=== PATIENT | female | born 1955 | race Caucasian/White ===

== ENCOUNTER → 2018-03-31 | Outpatient (CLI) | payer SELFPAY ==
--- NOTE | 2018-04-01 07:01 | US ---
EXAMINATION TYPE: US carotid duplex BILAT DATE OF EXAM: 03/31/2018 COMPARISON: NONE CLINICAL HISTORY: I65.29 OCCLUSION AND STENOSIS. EXAM MEASUREMENTS: RIGHT: Peak Systolic Velocity (PSV) cm/sec ----- Right CCA: 110.8 ----- Right ICA: 131.9 ----- Right ECA: 230.3 ICA/CCA ratio: 1.2 RIGHT: End Diastole cm/sec ----- Right CCA: 39.2 ----- Right ICA: 39.8 ----- Right ECA: 32.3 LEFT: Peak Systolic Velocity (PSV) cm/sec ----- Left CCA: 57.3 ----- Left ICA: 328.1 ----- Left ECA: 74.6 ICA/CCA ratio: 5.7 LEFT: End Diastole cm/sec ----- Left CCA: 20.6 ----- Left ICA: 104.4 ----- Left ECA: 20.2 VERTEBRALS (direction of flow): Right Vertebral: Antegrade Left Vertebral: Antegrade Rhythm: Normal Significant stenosis left side, elevated ICA velocities with extensive plaque noted. IMPRESSION: 1. Extensive atherosclerotic plaque with findings suggestive of a severe stenosis greater than 70% in volving the left internal carotid artery. Criteria for Assigning % of Stenosis / Diameter reduction (Estimation based on the indirect measurements of the internal carotid artery velocities (ICA PSV). 1. Normal (no stenosis)=ICA PSV < 125 cm/s: ratio < 2.0: ICA EDV<40 cm/s. 2. Less than 50% stenosis=ICA PSV < 125 cm/s: ratio < 2.0: ICA EDV<40 cm/s. 3. 50 to 69% stenosis=ICA PSV of 125 to 230 cm/s: ration 2.0 ? 4.0: ICA EDV 40-100 cm/s. 4. Greater than 70% stenosis to near occlusion= ICA PSV > 230 cm/s: ratio > 4.0: ICA EDV > 100 cm/s. 5. Near occlusion= ICA PSV velocities may be low or undetectable: variable ratio and ICA EDV. 6. Total occlusion=unable to detect flow.
== END | disposition home or self-care (01) ==
LOC: RADUSWWP 15:45
PROVIDERS: ATTEND Psychiatry & Neurology Vascular Neurology
DX: I65.23 Occlusion and stenosis of bilateral carotid arteries (principal)
CPT/HCPCS: 93880

== ENCOUNTER → 2018-05-27 | Outpatient (CLI) | payer OTHER, MEDICARE ==
--- NOTE | 2018-05-28 08:29 | CTL ---
EXAMINATION TYPE: CT Low Dose Lung DATE OF EXAM ORDERED: 05/27/2018 HISTORY: Long-term tobacco use. Lung cancer screening CT DLP: [address] CTDI: 2.6 mGy Automated exposure control for dose reduction was used. SCREENING VISIT: Initial study COMPARISON: None TECHNIQUE: Low dose computed tomography scan was performed through the chest at 1 mm thick sections a nd reconstructed images in the coronal plane at [address] DIAGNOSTIC QUALITY: Satisfactory FINDINGS: LUNG NODULES: Present, detailed below: Right mid to lower lung a 4 x 3 mm nodule axial image 140. No greater than 4 mm nodules are evident bilaterally. Incidental calcified 3 mm nodules or granulomas right lower lobe axial image 138 and right upper lobe axial image 81 and lingula axial image 160 LUNGS: COPD: Severity: Moderate Fibrosis: Severity: Mild to moderate focal linear scarring left lung base is prominent in the lingula . Lymph nodes: None Other findings: Elevated left hemidiaphragm noted. Mild to moderate central peribronchial wall thickening is consistent with underlying COPD. BILATERAL PLEURAL SPACE: Effusion: None Calcification: None Thickening: None Pneumothorax: None HEART: Heart Size: Normal Coronary calcification: Severe 3 vessel Pericardial effusion: None OTHER FINDINGS: Upper abdomen: None Bony thorax: Moderate multilevel spurring with underlying S-shaped scoliotic curvature and some mild to moderate multilevel disc space narrowing mid to lower thoracic spine Supraclavicular region: None Other: None IMPRESSION: Small right lung 4 x 3 mm noncalcified nodule. No greater than [address] CHEST RECOMMENDATION: Annual low-dose lung screening CT. CT LUNG RAD: Lung-Rad 2S Benign Appearance or Behavior Recommendation: Severe three-vessel coronary artery calcification, correlate clinically to exclude st ents or for additional coronary artery risk factors to determine if further workup is necessary.
== END | disposition home or self-care (01) ==
LOC: RADCTMAIN 16:24
PROVIDERS: ATTEND Family Medicine
DX: R91.1 Solitary pulmonary nodule (principal); Z87.891 Personal history of nicotine dependence

== ENCOUNTER → 2018-05-28 | Outpatient (CLI) | payer MEDICARE, OTHER ==
[2018-05-28 08:15] VITALS: BP 124/68; PULSE 80; RESP 18; TEMP 96.2; BMI 45.4
--- NOTE | 2018-05-28 09:04 | P.HPOB ---
History of Present Illness H&P Date: 05/28/18 Chief Complaint: The patient is here for her routine gynecologic exam and mammogram. This is a 62-year-old with an LMP of 2000. She is here to establish with this office. She states it has been more than 10 years since her last pelvic exam. She is status post vaginal hysterectomy with BSO in 2000 for benign reasons. The patient is without gynecologic complaints. Review of Systems The patient's weight has been stable over the last year. She denies respiratory , cardiac, or G.I. problems. 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 History of Any Multi-Drug Resistant Organisms: None Reported Past Surgical History: Section (x2), Cholecystectomy, Joint Replacement (Hip replacement bilateral), Orthopedic Surgery, Tonsillectomy Additional Past Surgical History / Comment(s): cervical spinal fusion, hip replacements. Colonoscopy in approximately 2011. Past Anesthesia/Blood Transfusion Reactions: No Reported Reaction Past Psychological History: Anxiety Additional Psychological History / Comment(s): being treated Smoking Status: Former smoker (Quit 01/2018. Previously was very heavy smoker before 2007.) Past Alcohol Use History: Occasional (2 to 3 per week) Past Drug Use History: None Reported Additional History: She's been since 1979 and is disabled. - Past Family History Mother Family Medical History: No Reported History Father Additional Family Medical History / Comment(s): Alzheimer's disease. Medications and Allergies Home Medications Medication Instructions Recorded Confirmed Type Aspirin [Adult Low Dose Aspirin EC] 81 mg PO DAILY 05/28/18 05/28/18 History Atorvastatin [Lipitor] 40 mg PO HS 05/28/18 05/28/18 History Omeprazole 40 mg PO DAILY 05/28/18 05/28/18 History Sertraline [Zoloft] 50 mg PO DAILY 05/28/18 05/28/18 History Ticagrelor [Brilinta] 90 mg PO DAILY 05/28/18 05/28/18 History Allergies Allergy/AdvReac Type Severity Reaction Status Date / Time cephalexin [From Keflex] Allergy Rash/Hives Verified 05/28/18 08:24 Exam Vital Signs Temp Pulse Resp BP Pulse Ox 05/28/18 08:06 96.2 F L 80 18 124/68 98 Intake and Output 05/27/18 05/28/18 05/28/18 22:59 06:59 14:59 Other: Weight 95.254 kg Height 4'9", weight 210 pounds, BMI 45.4. This is a well-developed well-nourished heavyset white female who is alert and oriented times 3 in no acute distress who uses a motorized scooter for mobility. Speech is somewhat slow, but she is able to answer questions appropriately. HEENT: Within normal limits. NECK: Supple without mass or thyromegaly. No carotid bruits are auscultated. CHEST AND LUNGS: Clear to auscultation. HEART: Regular rate and rhythm. BREASTS: Are without mass or discharge. AXILLARY EXAM: Negative for adenopathy. BACK: Negative for CVA tenderness. ABDOMEN: Soft, obese, nontender, without palpable masses. PELVIC EXAM: External genitalia appears normal with mild atrophy. Vagina appears normal with mild atrophy. There is no evidence of prolapse. Bimanual examination is negative for mass or tenderness. RECTAL EXAM: Rectovaginal exam is negative for mass or tenderness and is negative for occult blood. EXTREMITIES: Nontender. IMPRESSION: 1. 62-year-old menopausal female status post vaginal hysterectomy and BSO for benign reasons with normal gynecologic exam. 2. Multiple medical problems including CVA with residual deficits. PLAN: 1. Pap smears have been discontinued. 2. Self breast awareness was discussed with the patient. 3. Screening mammogram will be done today. 4. Osteoporosis prevention was discussed. I have stressed the importance of adequate calcium, vitamin D and regular exercise. Recommended amounts of calcium and vitamin D were also discussed. Bone density testing will be done today. She believes she had one done many years ago, but does not know the results. 5. She will return in one year.
--- NOTE | 2018-05-28 11:10 | BD ---
EXAMINATION TYPE: Axial Bone Density DATE OF EXAM: 05/28/2018 COMPARISON: Baseline exam. No priors. CLINICAL HISTORY: Postmenopausal female. Osteoporosis screening. Height: 59 Weight: 208.9 FRAX RISK QUESTIONS: Alcohol (3 or more units per day): no Family History (Parent hip fracture): no Glucocorticoids (More than 3mos): no (Ex: prednisone, prednisolone, methylprednisolone, dexamethasone, and hydrocortisone). History of Fracture in Adulthood: yes Secondary Osteoporosis: 1. Type 1 Diabetes: no 2. Hyperthyroidism: no 3. Menopause before 45: no 4. Malnutrition: no 5. Chronic liver disease: no Rheumatoid Arthritis: yes Current Tobacco Use: no RISK FACTORS HISTORY OF: History of Wrist Fracture: right wrist When: 20 years ago Surgery to Spine/Hip(right/left)/Wrist (right/left): c-spine/ bilateral hip replacements-15 years ago Family History of Osteoporosis: no Active: no Diet low in dairy products/other sources of calcium: no Postmenopausal woman: 53 Lost more than 2 inches in height since high school: no Frequent falls: no MEDICATIONS: aspirin, acetaminophen, calcium, ticaglor Additional History: EXAM MEASUREMENTS: Bone mineral densitometry was performed using the [employer] System. Bone mineral density as measured about the Lumbar spine is: ----- L1-L4(G/cm2): 1.064 T Score Values are as follows: ----- L2: -2.4 ----- L3: -0.5 ----- L4: 0.0 ----- L1-L4: -1.0 Bone mineral density : baseline Bone mineral density about the L Wrist (g/cm2): 0.579 T Score values are as follows: -----Dist. R+U: -2.6 -----Prox. R+U: -1.0 -----Radius total: -1.6 Bone mineral density : baseline IMPRESSION: Osteoporosis (T Score less than -2.5) with regards to the right wrist. There is increased fracture risk and therapy is usually indicated based on age. Re-Screen 1-2 years. NOTE: T-SCORE=SD OF THE YOUNG ADULT MEAN.
--- NOTE | 2018-05-31 09:26 | MM ---
Reason for exam: screening (asymptomatic). History: Patient is postmenopausal. Family history of breast cancer in maternal grandmother at age 80. MG 3D Screening Mammo W/Cad Bilateral CC and MLO view(s) were taken. The breast tissue is heterogeneously dense. This may lower the sensitivity of mammography. There is a benign-appearing single round subareolar left breast calcification. No discrete abnormality. ASSESSMENT: Benign, BI-RAD 2 RECOMMENDATION: Routine screening mammogram of both breasts in 1 year.
--- NOTE | 2018-06-04 12:47 | P.PN ---
Progress Note - Text Progress Note Date: 06/04/18 OUTPATIENT FOLLOW-UP NOTE TEST(S)/RESULTS: test results from 05/28/2018 include benign mammogram and bone density testing showing osteoporosis (R wrist). METHOD OF NOTIFICATION: the patient was notified by phone. PATIENT COMMENTS: the patient understands the results. She is considering medication for osteoporosis. She believes she had another bone density test done a few years ago in a different city. She does not know the results. DIAGNOSIS: osteoporosis DISCUSSION: we had a long discussion regarding osteoporosis and the increased risk for bone fracture. I have recommended medication for osteoporosis to decrease the risk for bone fracture. We discussed possible risks including increased risk for esophageal ulceration. PLAN: information on osteoporosis and Fosamax will be sent to the patient. This will include the ACOG FAQ and out on osteoporosis. I recommended that she reviewed this with her daughter, Lion, and call if she has questions or if she would like to proceed with the medication. I have also stressed the importance of adequate calcium, vitamin D and exercise.
== END | disposition home or self-care (01) ==
LOC: WWCWWP 07:48
PROVIDERS: ATTEND Obstetrics & Gynecology
DX: Z12.31 Encounter for screening mammogram for malignant neoplasm of breast (principal); M81.0 Age-related osteoporosis without current pathological fracture; Z78.0 Asymptomatic menopausal state
CPT/HCPCS: 77063; 77067; 77080

== ENCOUNTER → 2018-06-18 | Outpatient (CLI) | payer OTHER, MEDICARE ==
[~2018-06-18] MED LIST: REGADENOSON 0.4 MG/5 ML SYRINGE IV ONE
--- NOTE | 2018-06-18 14:00 | NM ---
EXAMINATION TYPE: NM stress lexiscan cardiolite DATE OF EXAM: 06/18/2018 COMPARISON: NONE HISTORY: 62-year-old female with chest pain and shortness of breath. History of hypercholesterolemia, 40 pack-year history of smoking, and prior CVA. TECHNIQUE: After the intravenous administration of 9.9 mCi Tc 99m Sestamibi - Cardiolite resting SPE CT images acquired 45 minutes post injection. The patient received 0.4mg Lexiscan, 24.4 mCi Tc 99m Sestamibi - Stress images obtained [address] injection FINDINGS: The technologist notes that at the time of injection, patient experienced shortness of breath and marco sea. This improves at 10 minutes 36 seconds. Review of stress and rest SPECT images demonstrates small area of decreased perfusion along the anter olateral apical and midanterior angela on stress imaging. Gated analysis shows normal wall motion with an estimated left ventricular ejection fraction of 51 %. TID is calculated at 1.29, elevated. IMPRESSION: 1. Unable to exclude small areas of stress-induced ischemia along the mid anterior wall and anterolat eral apical wall. 2. In addition, TID is elevated and can be seen in the setting of multivessel balanced ischemia. 3. LVEF mildly diminished at 51%.
--- NOTE | 2018-06-20 11:48 | EST ---
EXERCISE STRESS AGE: 62 SEX: F HT: 59" WT: 200 PROTOCOL: Lexiscan Cardiolite Stress Test. HEART RATE REST: 62. BLOOD PRESSURE REST: 139/70 MAXIMUM HEART RATE ACHIEVED: 94 MAXIMUM BLOOD PRESSURE: 162/90 INDICATIONS: Chest pain and shortness of breath CLINICAL INFORMATION: Baseline heart rate 62 beats per minute. Baseline blood pressure 139/70 mmHg. Patient received Lexiscan infusion per protocol. Baseline 12-lead ECG shows normal sinus rhythm with normal cardiac intervals. Patient received Lexiscan infusion per protocol. No arrhythmias noted, no ST-segment abnormalities noted. Heart rate increased into the 90s, blood pressure of 162/90 mmHg. She complained of shortness of breath, nausea at that time. Nuclear portion will be reported separately. MMODL / IJN: [id number] /
== END | disposition home or self-care (01) ==
LOC: RADNMMAIN 08:16
PROVIDERS: ATTEND Internal Medicine
DX: R93.1 Abnormal findings on diagnostic imaging of heart and coronary circulation (principal); R06.02 Shortness of breath; R07.89 Other chest pain
CPT/HCPCS: 93017; 78452; A9500; J2785

== ENCOUNTER 2019-01-06 16:31 | Emergency (ER) | payer OTHER, MEDICARE ==
[2019-01-06 16:58] VITALS: RESP 18
[2019-01-06] MEDS ORDERED: KETOROLAC 30 MG/ML 1 ML VIAL IM STA (17:32)
--- NOTE | 2019-01-06 18:02 | XR ---
PROCEDURE: XR Hip LT and AP Pelvis - 3V DATE AND TIME: 01/06/2019 5:46 PM CLINICAL INDICATION: PHH; Pain left hip, unable to bear weight. TECHNIQUE: Department protocol COMPARISON: None FINDINGS: The bilateral orthopedic hardware are intact. No periprosthesis lucencies. There is no frac ture or malalignment. The soft tissues are unremarkable. IMPRESSION: NO ACUTE PROCESS.
[2019-01-06] MEDS ORDERED: MORPHINE SULFATE 4 MG/ML SYRINGE IM STA (18:58)
--- NOTE | 2019-01-06 19:37 | ED ---
General Adult HPI - General Chief complaint: Extremity Problem,Nontraumatic Stated complaint: Hip pain Time Seen by Provider: 01/06/19 17:19 Source: patient, family, RN notes reviewed Mode of arrival: wheelchair Limitations: altered mental status, physical limitation - History of Present Illness Initial comments: 63-year-old female with a past medical history of hip dysplasia, COPD, CVA, GERD, hyperlipidemia, bilateral hip replacement 20 years ago presents to the emergency department for left hip pain. Patient's states that she started to complain of left hip pain around 11 AM this morning. States it is painful to walk. States pain worsens with movement of the left hip. Denies fevers or chills. Denies any tingling or numbness in the lower extremity.Patient has no other complaints at this time including shortness of breath, chest pain, abdominal pain, nausea or vomiting, headache, or visual changes. - Related Data Home Medications Medication Instructions Recorded Confirmed Aspirin [Adult Low Dose Aspirin EC] 81 mg PO DAILY 05/28/18 01/06/19 Atorvastatin [Lipitor] 40 mg PO HS 05/28/18 01/06/19 Omeprazole 40 mg PO DAILY 05/28/18 01/06/19 Sertraline [Zoloft] 50 mg PO DAILY 05/28/18 01/06/19 Ticagrelor [Brilinta] 90 mg PO BID 05/28/18 01/06/19 Previous Rx's Medication Instructions Recorded HYDROcodone/APAP 5-325MG [Risingsun 1 tab PO Q6HR PRN #10 tab 01/06/19 5-325] Allergies Allergy/AdvReac Type Severity Reaction Status Date / Time cephalexin [From Keflex] Allergy Rash/Hives Verified 01/06/19 17:11 diazepam [From Valium] AdvReac Confusion Verified 01/06/19 17:11 Review of Systems ROS Statement: Those systems with pertinent positive or pertinent negative responses have been documented in the HPI. ROS Other: All systems not noted in ROS Statement are negative. Past Medical History Past Medical History: COPD, CVA/TIA, GERD/Reflux, Hyperlipidemia Additional Past Medical History / Comment(s): Hip dysplasia. History of Any Multi-Drug Resistant Organisms: None Reported Past Surgical History: Section, Cholecystectomy, Heart Catheterization With Stent, Joint Replacement, Orthopedic Surgery, Tonsillectomy Additional Past Surgical History / Comment(s): cervical spinal fusion, hip re placements. carotid artery stent Past Anesthesia/Blood Transfusion Reactions: No Reported Reaction Past Psychological History: Anxiety, Depression Smoking Status: Former smoker Past Alcohol Use History: Occasional Past Drug Use History: None Reported - Past Family History Mother Family Medical History: No Reported History Father Additional Family Medical History / Comment(s): Alzheimer's disease. General Exam Limitations: altered mental status, physical limitation General appearance: alert, in no apparent distress Head exam: Present: atraumatic, normocephalic, normal inspection Eye exam: Present: normal appearance, PERRL, EOMI. Absent: scleral icterus, conjunctival injection, periorbital swelling ENT exam: Present: normal exam, mucous membranes moist Neck exam: Present: normal inspection, full ROM. Absent: tenderness, meningismus, lymphadenopathy Respiratory exam: Present: normal lung sounds bilaterally. Absent: respiratory distress, wheezes, rales, rhonchi, stridor Cardiovascular Exam: Present: regular rate, normal rhythm, normal heart sounds. Absent: systolic murmur, diastolic murmur, rubs, gallop, clicks Extremities exam: Present: normal capillary refill (Capillary refill less than 2 seconds, DP pulse 2+ in the left lower extremity.). Absent: full ROM (Patient has about 30 flexion, extension to neutral position. Patient has about 20 abduction of L hip.), tenderness (No tenderness of the left lower extremity.), pedal edema, joint swelling (No edema or erythema. No calf pain. No increased warmth. Sensation intact in the left lower extremity.) Neurological exam: Present: alert Psychiatric exam: Present: normal affect, normal mood Course Vital Signs 01/06/19 01/06/19 16:54 18:30 Temperature 97.9 F 98.3 F Pulse Rate 70 76 Respiratory 18 18 Rate Blood Pressure 128/78 152/83 O2 Sat by Pulse 96 96 Oximetry Medical Decision Making - Medical Decision Making 63-year-old female with left hip pain. This started 11 AM this morning. No known injury. Patient denies fevers or chills. Apparently was difficult for patient to bear weight on the left hip before arriving. Exam does show limited passive and active range of motion of the left hip. Neurovascular status intact the left lower extremity. X-ray of the left hip shows bilateral orthopedic hardware which is intact. There is no acute process. Patient was given Toradol and pain decreased from a 7 to a 4. Patient is now able to bear weight on the hip and is walking with assistance. Patient always uses a walker at home anyway. Patient was also given morphine in addition to this and is currently requesting discharge. Patient will be discharged home with Risingsun to take for breakthrough pain. Recommended following up with orthopedics. Recommended returning if she has any worsening symptoms. Disposition Clinical Impression: Hip pain, left Disposition: HOME SELF-CARE Condition: Good Instructions (If sedation given, give patient instructions): Hip Pain (ED) Additional Instructions: Please take Motrin for pain. If pain is severe take Risingsun. Do not drive or operate machinery while taking Risingsun. Please follow-up with orthopedics in one to 2 days. Return to the emergency department if you have any worsening symptoms. Prescriptions: HYDROcodone/APAP 5-325MG [Ris[place] 5-325] 1 tab PO Q6HR PRN #10 tab PRN Reason: Pain Is patient prescribed a controlled substance at d/c from ED?: Yes When asked, does pt state using other controlled substances?: No If prescribed controlled substance>3 days was MAPS reviewed?: Prescribed <3 Days If opioid is for acute pain is fill amount 7 days or less?: Yes If Rx opioid, was Start Talking consent form obtained?: Yes Referrals: Kory Ramirez MD [Primary Care Provider] - 1-2 days Sterling Tomas MD [Medical Doctor] - 1-2 days Time of Disposition: 19:30
[2019-01-06 19:52] VITALS: BP 144/78; PULSE 71; TEMP 98.2
== END 2019-01-06 19:49 | disposition home or self-care (01) ==
LOC: EC 16:31
DX: M25.552 Pain in left hip (principal); K21.9 Gastro-esophageal reflux disease without esophagitis; E78.5 Hyperlipidemia, unspecified; F41.9 Anxiety disorder, unspecified; F32.9 Major depressive disorder, single episode, unspecified; Z79.82 Long term (current) use of aspirin; Z79.899 Other long term (current) drug therapy; Z88.1 Allergy status to other antibiotic agents; Z88.8 Allergy status to other drugs, medicaments and biological substances; Z87.891 Personal history of nicotine dependence; Z86.73 Personal history of transient ischemic attack (TIA), and cerebral infarction without residual deficits; Z96.643 Presence of artificial hip joint, bilateral; Z95.5 Presence of coronary angioplasty implant and graft; Z98.1 Arthrodesis status
CPT/HCPCS: 73502; 99283; 96372 ×2; J2270; J1885

== ENCOUNTER → 2019-01-14 | Outpatient (CLI) | payer OTHER, MEDICARE ==
--- NOTE | 2019-01-14 13:07 | CT ---
EXAMINATION TYPE: CT hip LT wo con DATE OF EXAM: 01/14/2019 COMPARISON: X-ray 01/06/2019 HISTORY: Lt hip pain CT DLP: 931 mGycm Automated exposure control for dose reduction was used. FINDINGS: There is extreme artifact from the patient's postsurgical prostheses which results in a nondiagnostic exam. There may be slight eccentric appearance to the femoral head relative to the acetabular compon ent on the previous x-ray IMPRESSION: NONDIAGNOSTIC EXAM DUE TO EXTREME ARTIFACT FROM PATIENT'S ORTHOPEDIC HARDWARE
== END | disposition home or self-care (01) ==
LOC: RADCTMAIN 11:03
PROVIDERS: ATTEND Orthopaedic Surgery Sports Medicine
DX: M51.37 Other intervertebral disc degeneration, lumbosacral region (principal); M51.36 Other intervertebral disc degeneration, lumbar region; M51.87 Other intervertebral disc disorders, lumbosacral region; M51.16 Intervertebral disc disorders with radiculopathy, lumbar region

== ENCOUNTER → 2019-12-30 | Outpatient (CLI) | payer OTHER, MEDICARE ==
[2019-12-30 09:38] LABS: Basophils % (A) 0 %; Eosinophils # (A) 0.2 k/uL (0-0.7); Eosinophils % (A) 4 %; HCT 42.9 % (34.0-46.0); HGB 13.7 gm/dL (11.4-16.0); Lymphocytes # (A) 1.4 k/uL (1.0-4.8); Lymphocytes % (A) 26 %; MCV 93.9 fL (80.0-100.0); Mean Platelet Volume 10.7; Monocytes # (A) 0.3 k/uL (0-1.0); Monocytes % (A) 5 %; Neutrophils # (A) 3.4 k/uL (1.3-7.7); Neutrophils % (A) 63 %; Platelet Count 193 k/uL (150-450); RBC 4.57 m/uL (3.80-5.40); RDW 12.9 % (11.5-15.5); WBC 5.4 k/uL (3.8-10.6)
[2019-12-30 16:47] LABS: African American GFR (CKD) 106.9 (60.0-200.0); Albumin 4.2 g/dL (3.80-4.90); Albumin/Globulin Ratio 2.21 (1.60-3.17); Anion Gap 9.7 mmol/L (4.00-12.00); BUN/Creat Ratio 31.43 Ratio (12.00-20.00); Calcium 9.4 mg/dL (8.7-10.3); Carbon Dioxide 24.3 mmol/L (21.6-31.8); Chol/HDL Ratio 2.65; Globulin 1.9 g/dL (1.6-3.3); LDL Cholesterol,Calculated 69.8 mg/dL (0.0-131.0); Non-African American GFR(CKD) 92.2 (60.0-200.0); Potassium 4.4 mmol/L (3.5-5.5); Total Bilirubin 0.5 mg/dL (0.3-1.2); Total Protein 6.1 g/dL (6.2-8.2); VLDL Calculation 19.2 mg/dL (5.00-40.00)
== END | disposition home or self-care (01) ==
LOC: LABWHC1 07:42
PROVIDERS: ATTEND Family Medicine
DX: I10 Essential (primary) hypertension (principal); E78.2 Mixed hyperlipidemia; Z86.73 Personal history of transient ischemic attack (TIA), and cerebral infarction without residual deficits
CPT/HCPCS: 36415; 80053; 80061; 85025

== ENCOUNTER → 2020-02-04 | Outpatient (CLI) | payer OTHER, MEDICARE ==
--- NOTE | 2020-02-04 17:25 | CONS ---
CONSULTATION DATE OF SERVICE: 02/04/2020 A 64-year-old lady who has been evaluated in the [facility] for possible obstructive sleep apnea-hypopnea syndrome. HISTORY OF PRESENT ILLNESS/SLEEP WAKE EVALUATION: Patient usual sleep schedule from around 9:30 p.m. until around 4 to 6:am. She denies any significant problem with falling asleep, but sometimes she wakes up in the middle of the night and does not sleep after that. She has TV set in bedroom. She usually sleeps on the back position. She snores, grinding her teeth. Positive history of sleep talking and restless legs. In the morning, patient wakes up tired, falling asleep during the day, has problems with memory and concentration. [place] Sleepiness Scale increased to 10. She may take one nap around 1 pm. PAST MEDICAL HISTORY: Positive for stroke about 2 years ago with residual right-sided weakness, history of 20 clonic seizure episodes, the last episode about 2 months ago, hyperlipidemia, acid reflux, depression. MEDICATIONS: Aspirin 81 mg once a day, Atorvastatin 40 mg once a day, Brilinta 90 mg once a day, Famotidine 20 mg, omeprazole 40 mg, sertraline 50 mg, Keppra 750 mg. SOCIAL HISTORY: Negative for smoking or using alcohol. FAMILY HISTORY: Positive for , dementia. REVIEW OF SYSTEMS: Awakenings from sleep, sleepiness during the day. PHYSICAL EXAM: lady without distress, BP 134/85, HR 71, RR 16, height 4, 11, weight 209.6, BMI 42.4, temperature 97.9, oxygen saturation at room air 93%. OROPHARYNX: Extremely low position of soft palate. Mallampati 4. NECK: 15-3/4 inches in circumference. ABDOMEN: Obese. FINISHER WALLBOARD AND PLASTERBOARD: Weakness on the right side of the body. Patient walks with a walker. IMPRESSION: 1. Snoring, extremely low position of soft palate, sleepiness. [place] Sleepiness Scale is 10. Obstructive sleep apnea-hypopnea syndrome. 2. History of restless leg symptoms. 3. History of stroke 2 years ago with residual right-sided weakness. 4. History of seizures episodes, last time about 2 months ago, tonic clonic. 5. Hyperlipidemia. 6. Acid reflux. 7. Status post cholecystectomy. 8. Status post tonsillectomy. 9. Status post multiple right hip surgeries with replacement x5 according to patient, status post neck surgery. PLAN: 1. Polysomnography for evaluation of patient's breathing during sleep. 2. CPAP/BiPAP titration if sleep study confirms obstructive sleep apnea-hypopnea syndrome. 3. Preferable position during sleep on the side. 4. No driving if patient feels any sleepiness. 5. I will see patient for follow up visit to explain results of testing and following plan. Thank you very much for referring this patient for consultation. Sincerely, Ulisses Izaguirre MD, PhD, FAASM Diplomat of [employer] [employer] [employer] Nurse Instructor of [facility] [place] MMODL / IJN: [id number] /
== END | disposition home or self-care (01) ==
LOC: SLEEP 11:22
PROVIDERS: ATTEND Internal Medicine
DX: Z79.82 Long term (current) use of aspirin (principal); G47.33 Obstructive sleep apnea (adult) (pediatric); E78.5 Hyperlipidemia, unspecified; K21.9 Gastro-esophageal reflux disease without esophagitis; Z79.899 Other long term (current) drug therapy; Z86.73 Personal history of transient ischemic attack (TIA), and cerebral infarction without residual deficits; Z90.49 Acquired absence of other specified parts of digestive tract; Z96.641 Presence of right artificial hip joint; Z98.890 Other specified postprocedural states; Z86.69 Personal history of other diseases of the nervous system and sense organs
CPT/HCPCS: 99211

== ENCOUNTER 2020-09-01 18:37 | Emergency (ER) | payer OTHER, MEDICARE ==
[2020-09-01 18:55] VITALS: BP 116/71; PULSE 79; RESP 18; TEMP 98.1
--- NOTE | 2020-09-01 21:14 | ED ---
Wound/Laceration HPI - General Chief Complaint: Wound/Laceration Stated Complaint: Fall, L Leg Injury Time Seen by Provider: 09/01/20 20:51 Source: patient Mode of arrival: wheelchair Limitations: no limitations - History of Present Illness Initial Comments: 64-year-old female presents to emergency room with a chief complaint of a leg injury. Patient reports this occurred about 5 hours prior to arrival. Patient reports she was attempting to get into a truck when she slipped and hit her left thacker directly on the board. Patient reports there was a small area of bleeding which is since resolved. However, states she has developed a large area of bruising that is quite tender to touch. Patient does take blood thinners. She denies any numbness or tingling. Tetanus up-to-date - Related Data Home Medications Medication Instructions Recorded Confirmed Aspirin [Adult Low Dose Aspirin EC] 81 mg PO DAILY 05/28/18 01/06/19 Atorvastatin [Lipitor] 40 mg PO HS 05/28/18 01/06/19 Omeprazole 40 mg PO DAILY 05/28/18 01/06/19 Sertraline [Zoloft] 50 mg PO DAILY 05/28/18 01/06/19 Ticagrelor [Brilinta] 90 mg PO BID 05/28/18 01/06/19 Previous Rx's Medication Instructions Recorded HYDROcodone/APAP 5-325MG [[place] 1 tab PO Q6HR PRN #10 tab 01/06/19 5-325] Allergies Allergy/AdvReac Type Severity Reaction Status Date / Time cephalexin [From Keflex] Allergy Rash/Hives Verified 09/01/20 18:51 diazepam [From Valium] AdvReac Confusion Verified 09/01/20 18:51 Review of Systems ROS Statement: Those systems with pertinent positive or pertinent negative responses have been documented in the HPI. ROS Other: All systems not noted in ROS Statement are negative. Past Medical History Past Medical History: COPD, CVA/TIA, GERD/Reflux, Hyperlipidemia Additional Past Medical History / Comment(s): Hip dysplasia. History of Any Multi-Drug Resistant Organisms: None Reported Past Surgical History: Section, Cholecystectomy, Heart Catheterization With Stent, Joint Replacement, Orthopedic Surgery, Tonsillectomy Additional Past Surgical History / Comment(s): cervical spinal fusion, hip replacements. carotid artery stent Past Anesthesia/Blood Transfusion Reactions: No Reported Reaction Past Psychological History: Anxiety, Depression Smoking Status: Former smoker Past Alcohol Use History: Occasional Past Drug Use History: None Reported - Past Family History Mother Family Medical History: No Reported History Father Additional Family Medical History / Comment(s): Alzheimer's disease. General Exam Limitations: no limitations General appearance: alert, in no apparent distress, obese Head exam: Present: atraumatic, normocephalic, normal inspection Eye exam: Present: normal appearance, PERRL, EOMI Pupils: Present: normal accommodation ENT exam: Present: normal exam, normal oropharynx, mucous membranes moist Neck exam: Present: normal inspection, full ROM. Absent: tenderness Respiratory exam: Present: normal lung sounds bilaterally. Absent: respiratory distress, wheezes, rales, rhonchi, stridor, chest wall tenderness Cardiovascular Exam: Present: regular rate, normal rhythm, normal heart sounds. Absent: systolic murmur, diastolic murmur Extremities exam: Present: full ROM, tenderness (Tender at the injury site.), normal capillary refill, other (Palpable DP and PT bilaterally.). Absent: normal inspection (Small skin tear with an underlying hematoma measuring about 7 cm in diameter located on the anterior aspect of the left lower leg.), pedal edema, joint swelling, calf tenderness Back exam: Present: normal inspection, full ROM. Absent: tenderness, CVA tenderness (R), CVA tenderness (L) Neurological exam: Present: alert, oriented X3 Psychiatric exam: Present: normal affect, normal mood Skin exam: Present: warm, dry, intact, normal color Course Vital Signs 09/01/20 18:52 Temperature 98.1 F Pulse Rate 79 Respiratory 18 Rate Blood Pressure 116/71 O2 Sat by Pulse 94 L Oximetry Medical Decision Making - Medical Decision Making 64-year-old female presented to the emergency department with a chief complaint of a leg injury. On physical examination, small skin tear is noted at the site of injury with underlying hematoma. X-ray shows no acute bony deformities. She is otherwise neurovascularly intact. Tetanus is up-to-date. Patient will be discharged with an outpatient follow-up. Case discussed with Disposition Clinical Impression: Skin tear, Leg injury, Hematoma Disposition: HOME SELF-CARE Condition: Stable Instructions (If sedation given, give patient instructions): Hematoma (ED) Additional Instructions: Please return to the Emergency Department if symptoms worsen or any other concerns. Is patient prescribed a controlled substance at d/c from ED?: No Referrals: Kory Ramirez MD [REFERRING] - 1-2 days Time of Disposition: 21:54
--- NOTE | 2020-09-01 21:37 | XR ---
PROCEDURE: XR tibia fibula LT - 4V DATE AND TIME: 09/01/2020 9:22 PM CLINICAL INDICATION: PHH; Fall, pain TECHNIQUE: AP and crosstable lateral views from the knee to the ankle COMPARISON: None FINDINGS: There is no fracture or malalignment. The soft tissues are unremarkable. IMPRESSION: NO ACUTE PROCESS.
== END 2020-09-01 22:23 | disposition home or self-care (01) ==
LOC: EC 18:37
DX: S81.812A Laceration without foreign body, left lower leg, initial encounter (principal); J44.9 Chronic obstructive pulmonary disease, unspecified; K21.9 Gastro-esophageal reflux disease without esophagitis; F41.9 Anxiety disorder, unspecified; F32.9 Major depressive disorder, single episode, unspecified; E78.5 Hyperlipidemia, unspecified; Z79.82 Long term (current) use of aspirin; Z79.899 Other long term (current) drug therapy; Z86.73 Personal history of transient ischemic attack (TIA), and cerebral infarction without residual deficits; Z87.891 Personal history of nicotine dependence; W01.198A Fall on same level from slipping, tripping and stumbling with subsequent striking against other object, initial encounter
CPT/HCPCS: 99284

== ENCOUNTER 2020-10-08 03:40 | Observation (INO) | payer MEDICARE, OTHER ==
[2020-10-08] MEDS ORDERED: MORPHINE SULFATE 4 MG/ML SYRINGE IV STA (03:52)
[2020-10-08] MEDS ORDERED: SODIUM CHLORIDE 0.9% 1,000 ML IV STA ×2 (03:52)
[2020-10-08] MEDS ORDERED: ONDANSETRON 4 MG/2 ML VIAL IVP STA (03:52)
--- NOTE | 2020-10-08 03:53 | ED ---
Abdominal Pain HPI - General Chief Complaint: Abdominal Pain Stated Complaint: Abd Pain Time Seen by Provider: 10/08/20 03:44 Source: patient, family Mode of arrival: ambulatory Limitations: no limitations - Related Data Home Medications Medication Instructions Recorded Confirmed Aspirin [Adult Low Dose Aspirin EC] 81 mg PO DAILY 05/28/18 01/06/19 Atorvastatin [Lipitor] 40 mg PO HS 05/28/18 01/06/19 Omeprazole 40 mg PO DAILY 05/28/18 01/06/19 Sertraline [Zoloft] 50 mg PO DAILY 05/28/18 01/06/19 Ticagrelor [Brilinta] 90 mg PO BID 05/28/18 01/06/19 Previous Rx's Medication Instructions Recorded HYDROcodone/APAP 5-325MG [[place] 1 tab PO Q6HR PRN #10 tab 01/06/19 5-325] Allergies Allergy/AdvReac Type Severity Reaction Status Date / Time cephalexin [From Keflex] Allergy Rash/Hives Verified 10/08/20 03:49 diazepam [From Valium] AdvReac Confusion Verified 10/08/20 03:49 Review of Systems ROS Statement: Those systems with pertinent positive or pertinent negative responses have been documented in the HPI. ROS Other: All systems not noted in ROS Statement are negative. Past Medical History Past Medical History: COPD, CVA/TIA, GERD/Reflux, Hyperlipidemia Additional Past Medical History / Comment(s): Hip dysplasia. History of Any Multi-Drug Resistant Organisms: None Reported Past Surgical History: Section, Cholecystectomy, Heart Catheterization With Stent, Joint Replacement, Orthopedic Surgery, Tonsillectomy Additional Past Surgical History / Comment(s): cervical spinal fusion, hip replacements. carotid artery stent Past Anesthesia/Blood Transfusion Reactions: No Reported Reaction Past Psychological History: Anxiety, Depression Smoking Status: Former smoker Past Alcohol Use History: Occasional Past Drug Use History: None Reported - Past Family History Mother Family Medical History: No Reported History Father Additional Family Medical History / Comment(s): Alzheimer's disease. General Exam Limitations: no limitations Course Vital Signs 10/08/20 03:46 Temperature 98.9 F Pulse Rate 78 Respiratory 18 Rate Blood Pressure 154/88 O2 Sat by Pulse 95 Oximetry Medical Decision Making - Lab Data Result diagrams: 10/08/20 04:16 10/08/20 04:16 Lab Results 10/08/20 10/08/20 10/08/20 Range/Units 04:16 04:16 04:16 WBC 10.5 (3.8-10.6) k/uL RBC 4.06 (3.80-5.40) m/uL Hgb 12.7 (11.4-16.0) gm/dL Hct 37.0 (34.0-46.0) % MCV 91.1 (80.0-100.0) fL MCH 31.4 (25.0-35.0) pg MCHC 34.5 (31.0-37.0) g/dL RDW 13.6 (11.5-15.5) % Plt Count 182 (150-450) k/uL MPV 10.4 Neutrophils % 83 % Lymphocytes % 10 % Monocytes % 6 % Eosinophils % 1 % Basophils % 0 % Neutrophils # 8.8 H (1.3-7.7) k/uL Lymphocytes # 1.0 (1.0-4.8) k/uL Monocytes # 0.6 (0-1.0) k/uL Eosinophils # 0.1 (0-0.7) k/uL Basophils # 0.0 (0-0.2) k/uL Sodium 138 (137-145) mmol/L Potassium 3.9 (3.5-5.1) mmol/L Chloride 105 (98-107) mmol/L Carbon Dioxide 27 (22-30) mmol/L Anion Gap 6 mmol/L BUN 13 (7-17) mg/dL Creatinine 0.53 (0.52-1.04) mg/dL Est GFR (CKD-EPI)AfAm >90 (>60 ml/min/1.73 sqM) Est GFR (CKD-EPI)NonAf >90 (>60 ml/min/1.73 sqM) Glucose 130 H (74-99) mg/dL Plasma Lactic Acid Rob 0.9 (0.7-2.0) mmol/L Calcium 9.1 (8.4-10.2) mg/dL Total Bilirubin 0.4 (0.2-1.3) mg/dL AST 23 (14-36) U/L ALT 23 (4-34) U/L Alkaline Phosphatase 95 (38-126) U/L Total Protein 6.7 (6.3-8.2) g/dL Albumin 4.2 (3.5-5.0) g/dL Amylase 41 (30-110) U/L Lipase 48 (23-300) U/L Disposition Clinical Impression: Abdominal pain, Acute appendicitis Disposition: ADMITTED IP TO THIS HOSP Condition: Good Is patient prescribed a controlled substance at d/c from ED?: No Referrals: Nonstaff,Physician [Primary Care Provider] - 1-2 days
[2020-10-08 04:33] LABS: Basophils % (A) 0 %; Eosinophils # (A) 0.1 k/uL (0-0.7); Eosinophils % (A) 1 %; HGB 12.7 gm/dL (11.4-16.0); Lymphocytes % (A) 10 %; MCH 31.4 pg (25.0-35.0); MCHC 34.5 g/dL (31.0-37.0); MCV 91.1 fL (80.0-100.0); Mean Platelet Volume 10.4; Monocytes # (A) 0.6 k/uL (0-1.0); Monocytes % (A) 6 %; Neutrophils # (A) 8.8 k/uL (1.3-7.7); Neutrophils % (A) 83 %; Platelet Count 182 k/uL (150-450); RBC 4.06 m/uL (3.80-5.40); RDW 13.6 % (11.5-15.5); WBC 10.5 k/uL (3.8-10.6)
[2020-10-08 04:48] LABS: ALT 23 U/L (4-34); AST 23 U/L (14-36); African American GFR (CKD) >90 (>60 ml/min/1.73 sqM); Albumin 4.2 g/dL (3.5-5.0); Alkaline Phosphatase 95 U/L (38-126); Amylase 41 U/L (30-110); Anion Gap 6 mmol/L; Blood Urea Nitrogen 13 mg/dL (7-17); Calcium 9.1 mg/dL (8.4-10.2); Carbon Dioxide 27 mmol/L (22-30); Chloride 105 mmol/L (98-107); Glucose 130 mg/dL (74-99); Lipase 48 U/L (23-300); Non-African American GFR(CKD) >90 (>60 ml/min/1.73 sqM); Potassium 3.9 mmol/L (3.5-5.1); Sodium 138 mmol/L (137-145); Total Bilirubin 0.4 mg/dL (0.2-1.3); Total Protein 6.7 g/dL (6.3-8.2)
--- NOTE | 2020-10-08 05:29 | CT ---
EXAM: CT Abdomen and Pelvis With Intravenous Contrast CLINICAL HISTORY: ITS.REASON CT Reason: abdominal pain TECHNIQUE: Axial computed tomography images of the abdomen and pelvis with intravenous contrast. CTDI is 50.37 mGy and DLP is 1983.8 mGy-cm. This CT exam was performed using one or more of the following dose reduction techniques: automated exposure control, adjustment of the mA and/or kV according to patient size, and/or use of iterative reconstruction technique. COMPARISON: No relevant prior studies available. FINDINGS: Artifacts: There is significant beam hardening artifact through the pelvis from the lateral hip arthroplasties which limits detailed evaluation in this region. Limitations: There is respiratory artifact which degrades image quality on multiple image slices. Lung bases: Subsegmental changes noted in the posterior lung bases. ABDOMEN: Liver: Unremarkable. No mass. Gallbladder and bile ducts: Cholecystectomy. No ductal dilation. Pancreas: Unremarkable. No mass. No ductal dilation. Spleen: Unremarkable. No splenomegaly. Adrenals: Unremarkable. No mass. Kidneys and ureters: The kidneys demonstrate normal enhancement without hydronephrosis or obstructive nephrolithiasis. Cortical cysts are noted throughout the right kidney measuring up to 3.1 cm in diameter. Delayed phase imaging demonstrates normal excreted contrast in the renal collecting systems and proximal ureters. Stomach and bowel: Unremarkable. No obstruction. No mucosal thickening. PELVIS: Appendix: There is a 7 mm appendicolith noted at the proximal appendiceal ostium. The distal appendix is prominent, measuring 10 mm in diameter with periappendiceal fat stranding. Bladder: The bladder is grossly unremarkable, accounting for artifacts. Reproductive: The uterus is not clearly defined. ABDOMEN and PELVIS: Intraperitoneal space: Unremarkable. No free air. No significant fluid collection. Bones/joints: Bilateral hip arthroplasties. Degenerative changes of the visualized inferior thoracic and lumbar spine with vacuum phenomenon noted at several intervertebral disc levels. There is a 2-3 mm anterolisthesis of T12 on L1. Soft tissues: Unremarkable. Vasculature: Atherosclerotic calcification involving the abdominal aorta and iliac arteries. No abdominal aortic aneurysm. Lymph nodes: Unremarkable. No enlarged lymph nodes. IMPRESSION: There is a 7 mm appendicolith noted at the proximal appendiceal ostium. The distal appendix is prominent, measuring 10 mm in diameter with periappendiceal fat stranding. Findings are most consistent with acute appendicitis. No abscess or bowel perforation. <MYCVCSECTION> Communications: 10/08/20 05:34 Call Doctor Regarding Appendicitis, called Dr. Ramirez on 10/08 05:34 (-04:00)
[2020-10-08] MEDS ORDERED: HYDROmorphone 1 MG/ML 1 ML SYRINGE IVP STA (05:34)
[2020-10-08] MEDS ORDERED: NALOXONE 0.4 MG/ML 1 ML VIAL IV PRN ×2 (05:34→20:39)
[2020-10-08] MEDS ORDERED: ONDANSETRON 4 MG/2 ML VIAL IVP PRN (05:34)
[2020-10-08] MEDS ORDERED: MORPHINE SULFATE 4 MG/ML SYRINGE IV PRN (05:34)
[2020-10-08] MEDS ORDERED: AMPICILLIN-SULBACTAM 3 GM in SODIUM CHLORIDE 0.9% 100 ML IVPB STA (05:35)
[2020-10-08] MEDS ORDERED: PROCHLORPERAZINE INJ 10 MG/2 ML VIAL IVP STA (05:44)
[2020-10-08] MEDS ORDERED: PROCHLORPERAZINE INJ 10 MG/2 ML VIAL IVP PRN (05:44)
[2020-10-08] MEDS: SODIUM CHLORIDE 0.9% 1,000 ML IV SCH ×3 (06:03→23:54)
--- NOTE | 2020-10-08 13:55 | ECHOF ---
Referral Reason:pre op clearance MEASUREMENTS -------- HEIGHT: 177.8 cm WEIGHT: 99.8 kg BP: RVIDd: 3.6 cm (< 3.3) IVSd: 1.5 cm (0.6 - 1.1) LVIDd: 3.7 cm (3.9 - 5.3) LVPWd: 1.3 cm (0.6 - 1.1) IVSs: 2.1 cm LVIDs: 2.8 cm LVPWs: 1.4 cm LAESV Index (A-L): 23.70 ml/m Ao Diam: 3.1 cm (2.0 - 3.7) AV Cusp: 1.9 cm (1.5 - 2.6) LA Diam: 3.8 cm (2.7 - 3.8) MV EXCURSION: 16.659 mm (> 18.000) MV EF SLOPE: 80 mm/s (70 - 150) EPSS: 0.8 cm MV E Sami: 0.91 m/s MV DecT: 166 ms MV A Sami: 1.04 m/s MV E/A Ratio: 0.87 RAP: 5.00 mmHg RVSP: 11.68 mmHg FINDINGS -------- Sinus rhythm. This was a technically adequate study. The left ventricular size is normal. There is moderate concentric left ventricular hypertrophy. O verall left ventricular systolic function is low-normal with, an EF between 50 - 55 %. The diastoli c filling pattern is normal for the age of the patient 9.11. The right ventricle is mildly enlarged. Normal LA size by volume 22+/-6 ml/m2. The right atrial size is normal. Interatrial and interventricular septum intact. The aortic valve is trileaflet and appears structurally normal. There is no evidence of aortic regu rgitation. There is no evidence of aortic stenosis. There is trace to mild mitral regurgitation. Mild tricuspid regurgitation present. There is no evidence of pulmonary hypertension. The right v entricular systolic pressure, as measured by Doppler, is 11.68mmHg. There is no pulmonic regurgitation present. The aortic root size is normal. IVC Not well visulized. There is no pericardial effusion. CONCLUSIONS -------- 1. The left ventricular size is normal. 2. There is moderate concentric left ventricular hypertrophy. 3. Overall left ventricular systolic function is low-normal with, an EF between 50 - 55 %. 4. The diastolic filling pattern is normal for the age of the patient 9.11 5. The right ventricle is mildly enlarged. 6. There is trace to mild mitral regurgitation. 7. Mild tricuspid regurgitation present. PATIENT SUPPORT SPECIALIST: Cherri Cuello RDCS
[2020-10-08] MEDS: AMPICILLIN-SULBACTAM 3 GM in SODIUM CHLORIDE 0.9% 100 ML IVPB SCH ×2 (14:23→21:42)
--- NOTE | 2020-10-08 14:53 | P.GSHP ---
History of Present Illness H&P Date: 10/08/20 This is a 64-year-old female with multiple medical comorbidities including CVA CAD with stents carotid artery stenting history of cholecystectomy and hysterectomy and obstructive sleep apnea. Patient presented to the hospital with a chief complaint of right lower quadrant abdominal pain which began earlier that day. She states she's never had pain like this before she denies any nausea vomiting she denies any change in bowel movements. She is on Proventil for her CVA. Patient was found to have acute appendicitis on computed tomography scan. She states she last took her blood 24 hours ago. Past Medical History Past Medical History: COPD, CVA/TIA, GERD/Reflux, Hyperlipidemia Additional Past Medical History / Comment(s): Hip dysplasia. History of Any Multi-Drug Resistant Organisms: None Reported Past Surgical History: Section, Cholecystectomy, Heart Catheterization With Stent, Joint Replacement, Orthopedic Surgery, Tonsillectomy Additional Past Surgical History / Comment(s): cervical spinal fusion, hip replacements. carotid artery stent Past Anesthesia/Blood Transfusion Reactions: No Reported Reaction Date of Last Stent Placement:: 2017 Past Psychological History: Anxiety, Depression Additional Psychological History / Comment(s): being treated Smoking Status: Former smoker Past Alcohol Use History: Occasional Past Drug Use History: None Reported - Past Family History Mother Family Medical History: No Reported History Father Additional Family Medical History / Comment(s): Alzheimer's disease. Medications and Allergies Home Medications Medication Instructions Recorded Confirmed Type Aspirin [Adult Low Dose Aspirin EC] 81 mg PO DAILY 05/28/18 10/08/20 History Atorvastatin [Lipitor] 40 mg PO DAILY 05/28/18 10/08/20 History Omeprazole 40 mg PO DAILY 05/28/18 10/08/20 History Sertraline [Zoloft] 50 mg PO HS 05/28/18 10/08/20 History Ticagrelor [Brilinta] 90 mg PO BID 05/28/18 10/08/20 History levETIRAcetam [Keppra] 750 mg PO BID 10/08/20 10/08/20 History Allergies Allergy/AdvReac Type Severity Reaction Status Date / Time cephalexin [From Keflex] Allergy Rash/Hives Verified 10/08/20 12:41 diazepam [From Valium] AdvReac Confusion Verified 10/08/20 12:41 Surgical - Exam Osteopathic Statement: *. No significant issues noted on an osteopathic structural exam other than those noted in the History and Physical/Consult. Vital Signs Temp Pulse Resp BP Pulse Ox 98.9 F 78 18 154/88 95 10/08/20 03:46 10/08/20 03:46 10/08/20 03:46 10/08/20 03:46 10/08/20 03:46 - General well developed, well nourished, no distress - Eyes PERRL - Neck no masses, trachea midline - Cardiovascular Rhythm: regular - Abdomen Tender to palpation in the right lower quadrant with rebound tenderness Abdomen: soft - Neurologic normal coordination, normal sensation - Psychiatric oriented to time, oriented to place Results - Labs 10/08/20 04:16 10/08/20 04:16 Abnormal Lab Results - Last 24 Hours (Table) 10/08/20 10/08/20 Range/Units 04:16 04:16 Neutrophils # 8.8 H (1.3-7.7) k/uL Glucose 130 H (74-99) mg/dL Diabetes panel 10/08/20 Range/Units 04:16 Sodium 138 (137-145) mmol/L Potassium 3.9 (3.5-5.1) mmol/L Chloride 105 (98-107) mmol/L Carbon Dioxide 27 (22-30) mmol/L BUN 13 (7-17) mg/dL Creatinine 0.53 (0.52-1.04) mg/dL Glucose 130 H (74-99) mg/dL Calcium 9.1 (8.4-10.2) mg/dL AST 23 (14-36) U/L ALT 23 (4-34) U/L Alkaline Phosphatase 95 (38-126) U/L Total Protein 6.7 (6.3-8.2) g/dL Albumin 4.2 (3.5-5.0) g/dL Calcium panel 10/08/20 Range/Units 04:16 Calcium 9.1 (8.4-10.2) mg/dL Albumin 4.2 (3.5-5.0) g/dL Pituitary panel 10/08/20 Range/Units 04:16 Sodium 138 (137-145) mmol/L Potassium 3.9 (3.5-5.1) mmol/L Chloride 105 (98-107) mmol/L Carbon Dioxide 27 (22-30) mmol/L BUN 13 (7-17) mg/dL Creatinine 0.53 (0.52-1.04) mg/dL Glucose 130 H (74-99) mg/dL Calcium 9.1 (8.4-10.2) mg/dL Adrenal panel 10/08/20 Range/Units 04:16 Sodium 138 (137-145) mmol/L Potassium 3.9 (3.5-5.1) mmol/L Chloride 105 (98-107) mmol/L Carbon Dioxide 27 (22-30) mmol/L BUN 13 (7-17) mg/dL Creatinine 0.53 (0.52-1.04) mg/dL Glucose 130 H (74-99) mg/dL Calcium 9.1 (8.4-10.2) mg/dL Total Bilirubin 0.4 (0.2-1.3) mg/dL AST 23 (14-36) U/L ALT 23 (4-34) U/L Alkaline Phosphatase 95 (38-126) U/L Total Protein 6.7 (6.3-8.2) g/dL Albumin 4.2 (3.5-5.0) g/dL Assessment and Plan Assessment: Acute appendicitis History of CVA on Brilinta History of CAD Plan: I discussed the options with the patient. She is on antiplatelet therapy that she took 24 hours ago. Due to her multiple comorbidities she is high risk for surgery. Cardiology and medicine consult. Patient does have rebound tenderness and focal peritoneal signs in the right lower quadrant. Due to her physical exam findings I don't believe that the patient would tolerate conservative therapy and if she fails conservative therapy due to her multiple comorbidities she is high risk. Because of this I do recommend laparoscopic appendectomy possible open however patient is taking Brilinta and his significant risk for bleeding complications secondary to this. The plan is for transfusion of 2 packs of platelets and to have blood on hold for OR. Patient understood these risks and agreed to surgery
--- NOTE | 2020-10-08 16:03 | P.CONS ---
History of Present Illness - Reason for Consult surgical clearance, preoperative clearance - History of Present Illness patient is pleasant 64-year-old female came in with right no current abdominal pain which started last night at 11 PM severe sharp in nature without any nausea vomiting. Patient doesn't have any leukocytosis doesn't have any fever patient had a CT of the abdomen which showed acute appendicitis and patient was admitted to general surgery. Patient had an echocardiogram which showed did not show any significant abnormality. Patient had history of coronary artery disease and patient had last the stent that was present 2 years ago patient is an dual antiplatelet therapy. Patient had history of psoriasis for accident as well without any residual weakness. Patient is pretty functional doesn't have any shortness of breath doesn't have any active chest pain, EKG was ordered. Review of Systems REVIEW OF SYSTEMS: CONSTITUTIONAL: No fever, no malaise, no fatigue. HEENT: No recent visual problems or hearing problems. Denied any sore throat. CARDIOVASCULAR: No chest pain, orthopnea, PND, no palpitations, no syncope. PULMONARY: No shortness of breath, no cough, no hemoptysis. GASTROINTESTINAL: No diarrhea, no nausea, no vomiting. NEUROLOGICAL: No headaches, no weakness, no numbness. HEMATOLOGICAL: Denies any bleeding or petechiae. GENITOURINARY: Denies any burning micturition, frequency, or urgency. MUSCULOSKELETAL/RHEUMATOLOGICAL: Denies any joint pain, swelling, or any muscle pain. ENDOCRINE: Denies any polyuria or polydipsia. The rest of the 14-point review of systems is negative. Past Medical History Past Medical History: COPD, CVA/TIA, GERD/Reflux, Hyperlipidemia Additional Past Medical History / Comment(s): Hip dysplasia. History of Any Multi-Drug Resistant Organisms: None Reported Past Surgical History: Section, Cholecystectomy, Heart Catheterization With Stent, Joint Replacement, Orthopedic Surgery, Tonsillectomy Additional Past Surgical History / Comment(s): cervical spinal fusion, hip replacements. carotid artery stent Past Anesthesia/Blood Transfusion Reactions: No Reported Reaction Date of Last Stent Placement:: 2017 Past Psychological History: Anxiety, Depression Additional Psychological History / Comment(s): being treated Smoking Status: Former smoker Past Alcohol Use History: Occasional Past Drug Use History: None Reported - Past Family History Mother Family Medical History: No Reported History Father Additional Family Medical History / Comment(s): Alzheimer's disease. Medications and Allergies Home Medications Medication Instructions Recorded Confirmed Type Aspirin [Adult Low Dose Aspirin EC] 81 mg PO DAILY 05/28/18 10/08/20 History Atorvastatin [Lipitor] 40 mg PO DAILY 05/28/18 10/08/20 History Omeprazole 40 mg PO DAILY 05/28/18 10/08/20 History Sertraline [Zoloft] 50 mg PO HS 05/28/18 10/08/20 History Ticagrelor [Brilinta] 90 mg PO BID 05/28/18 10/08/20 History levETIRAcetam [Keppra] 750 mg PO BID 10/08/20 10/08/20 History Allergies Allergy/AdvReac Type Severity Reaction Status Date / Time cephalexin [From Keflex] Allergy Rash/Hives Verified 10/08/20 12:41 diazepam [From Valium] AdvReac Confusion Verified 10/08/20 12:41 Physical Exam Vitals: Vital Signs Temp Pulse Pulse Resp BP BP Pulse Ox 10/08/20 14:00 98.7 F 84 18 141/82 98 10/08/20 07:41 98.3 F 89 17 101/64 95 10/08/20 06:16 79 18 135/82 95 10/08/20 03:46 98.9 F 78 18 154/88 95 Intake and Output 10/08/20 10/08/20 10/08/20 06:59 14:59 22:59 Other: Weight 99.79 kg 99.79 kg PHYSICAL EXAMINATION: GENERAL: The patient is alert and oriented x3, not in any acute distress. Well developed, well nourished. HEENT: Pupils are round and equally reacting to light. EOMI. No scleral icterus. No conjunctival pallor. Normocephalic, atraumatic. No pharyngeal erythema. No thyromegaly. CARDIOVASCULAR: S1 and S2 present. No murmurs, rubs, or gallops. PULMONARY: Chest is clear to auscultation, no wheezing or crackles. ABDOMEN: Soft, nontender, nondistended, normoactive bowel sounds. No palpable organomegaly. MUSCULOSKELETAL: No joint swelling or deformity. EXTREMITIES: No cyanosis, clubbing, or pedal edema. NEUROLOGICAL: Gross neurological examination did not reveal any focal deficits. SKIN: No rashes. Results CBC & Chem 7: 10/08/20 04:16 05/22/21 04:16 Labs: Abnormal Lab Results - Last 24 Hours (Table) 10/08/20 10/08/20 10/08/20 Range/Units 04:16 04:16 14:03 Neutrophils # 8.8 H (1.3-7.7) k/uL Glucose 130 H (74-99) mg/dL Crossmatch See Detail Assessment and Plan Plan: -preoperative clearance: Patient is a low operative risk for appendectomy and this in urgent surgery anyway. Platelet infusion as per general surgery. Patient can be started back on aspirin once she is done with the surgery patient is presently on Unasyn. -Acute appendicitis patient is on Unasyn patient probably undergo appendectomy today -Seizure disorder for which patient is on Keppra which will be switched to IV -Coronary artery disease -History of CVA in the past -Hyperlipidemia -Depression For above-mentioned chronic medical problems patient can be resumed whenever she is allowed to take by mouth medication
[2020-10-08] MEDS: levETIRAcetam IV 750 MG in SODIUM CHLORIDE 0.9% 100 ML IVPB SCH ×2 (16:49→23:37)
--- NOTE | 2020-10-08 16:53 | CONS ---
CONSULTATION CHIEF COMPLAINT: Preop cardiac evaluation. HISTORY OF PRESENT ILLNESS: This is a 64-year-old lady was admitted to hospital with acute appendicitis. She presented with abdominal pain and had been diagnosed with acute appendicitis and is to undergo appendectomy by Dr. Ramos. I have been asked to see her because of her history of coronary artery disease. The patient has known coronary artery disease and had an angioplasty 2 years ago in [place] and has not been seen by a hearing therapy teacher since. There is no history of chest pain or symptoms of heart failure. An EKG done today shows sinus rhythm and is within normal limits. An echocardiogram showed normal LV systolic function. LABS: Labs show a hemoglobin of 12.7 potassium is 4.9, creatinine is 0.5, AST and ALT are within normal limits. The patient is an acceptable risk candidate for surgery under anesthesia as she is at increased risk for perioperative bleeding as she had been on Brilinta up until yesterday. PAST MEDICAL HISTORY: Significant for coronary artery disease status post angioplasty. MEDICATIONS: Include Zoloft, omeprazole, Lipitor 40 daily, aspirin, Keppra, Brilinta 90 b.i.d. ALLERGIC: KEFLEX AND VALIUM. FAMILY HISTORY: Negative for premature coronary artery disease. SOCIAL HISTORY: Negative for current smoking, EtOH abuse or drug abuse. REVIEW OF SYSTEMS: HEENT is unremarkable. CARDIAC: As described above. RESPIRATORY: As described above. GENITOURINARY: Negative. ALLERGY/IMMUNOLOGY: Negative. SKIN: Negative. MUSCULOSKELETAL: Negative. ENDOCRINE negative. DERM negative. CONSTITUTIONAL: Negative. GI significant for abdominal pain secondary to appendicitis. EXAM: She is comfortable at rest. Vital signs are stable. There is no jugular venous distention. Carotid upstroke is normal. There is no bruit. Chest exam reveals good air entry bilaterally. Heart exam reveals first and second heart sounds. Systolic murmur at the left lower sternal border. Abdomen is soft. Exam of extremities did not reveal any edema. Peripheral pulses are felt. EKG is normal as described above. Echocardiogram shows normal LV function. ASSESSMENT: 1. Preop cardiac evaluation. 2. Coronary artery disease status post angioplasty. 3. Dyslipidemia. 4. Acute appendicitis. PLAN: Patient needs an emergent surgery. She is an acceptable risk candidate at risk of bleeding. Brilinta had been stopped. Since the angioplasty is more than a year old, we do not have to restart the Brilinta after surgery. I am going to review her records from [place] and I advised her to follow up with me in the office. MMODL / IJN: [id number] /
[2020-10-08] MEDS ORDERED: fentaNYL (PF) 50 MCG/ML 2 ML AMP IVP ONE (18:39)
[2020-10-08] MEDS ORDERED: LACTATED RINGERS 1,000 ML IV ONE (18:43)
[2020-10-08] MEDS ORDERED: GLYCOPYRROLATE 0.2 MG/ML 2 ML VIAL ONE (18:50)
[2020-10-08] MEDS ORDERED: fentaNYL (PF) 50 MCG/ML 2 ML AMP ONE (18:50)
[2020-10-08] MEDS ORDERED: SUCCINYLCHOLINE CHLORIDE 100 MG/5 ML SYR IV ONE (18:50)
[2020-10-08] MEDS ORDERED: PROPOFOL 10 MG/ML 20 ML VIAL IV ONE (18:50)
[2020-10-08] MEDS ORDERED: ROCURONIUM 10 MG/ML (5 ML VIAL) IV ONE (18:50)
[2020-10-08] MEDS ORDERED: PHENYLEPHRINE-0.9% NACL SYG 1,000 MCG/10 ML SYRINGE ONE (18:50)
[2020-10-08] MEDS ORDERED: BUPIVACAIN-EPI 0.5%-1:200,000 30 ML VIAL SQ ONE ×2 (19:10)
[2020-10-08] MEDS ORDERED: HYDROmorphone 0.5 MG/0.5 ML SYRINGE IVP ONE (20:39)
--- NOTE | 2020-10-08 20:39 | P.OP ---
Date of Procedure: 10/08/20 Preoperative Diagnosis: Acute appendicitis Postoperative Diagnosis: Acute appendicitis an incarcerated incisional hernia Procedure(s) Performed: Laparoscopic appendectomy with extensive lysis of adhesions and repair of incarcerated ventral incisional hernia Anesthesia: PREETI Surgeon: Rashaad Ramos Estimated Blood Loss (ml): 5 Condition: stable Disposition: PACU Description of Procedure: Patient is brought operative suite remained in the supine position underwent general endotracheal anesthesia per Department of anesthesia she was prepped and draped in usual sterile fashion timeout was performed correct patient correct procedure correct site was verified. A 5 mm incision was made directly over pa lmers point in the left upper quadrant. Using a Visiport the abdomen was entered under direct visualization there is noted to be dense adhesions to the anterior abdominal wall in the midline. A second port was placed under direct visualization the left lower quadrant and using a combination of laparoscopic Metzenbaum scissors and a LigaSure device the adhesions were taken down meticulously being sure to ensure hemostasis. There was a 2 cm defect noted in the anterior abdominal wall with incarcerated omentum and mesentery within the defect. This was reduced. A 12 mm port site was placed in the midline and the patient was placed in Trendelenburg right side up. The appendix was identified and the mesial appendix was taken down with a LigaSure device hemostasis was noted the appendix was noted to be gangrenous but without perforation. Using a 60 mm toussaint load Endo ALBA stapler the appendix was stapled across at the base of the cecum with ease. Staple line was inspected and hemostasis was noted. The appendix was placed into an Endo Catch bag and removed through the 12 mm port site which was also through the hernia defect. At this time due to the patient's history of antiplatelet therapy hemostatic powder agent was placed at the staple line to ensure continued hemostasis and then the midline hernia defect was closed with 0 Vicryl with 8 of a Gera-Marilou suture passer in an interrupted fashion. The other 2 port sites were removed under direct visualization and the abdomen was desufflated the skin was closed with 4-0 Monocryl sutures and skin glue patient tolerated the procedure well there are no apparent complications
[2020-10-08] MEDS ORDERED: LACTATED RINGERS 1,000 ML IV SCH (20:45)
[2020-10-08] MEDS ORDERED: ALBUTEROL NEBULIZED 2.5 MG/3 ML INHALATION ONE (20:47)
[2020-10-08] MEDS ORDERED: SERTRALINE 50 MG TAB PO SCH (21:00)
[2020-10-08] MEDS: HYDROcodone/APAP 5-325MG 1 EACH TAB PO PRN (21:43)
[2020-10-08] MEDS: HEPARIN SODIUM,PORCINE/PF 5,000 UNIT/0.5 ML SYRINGE SQ SCH (23:37)
[2020-10-09] MEDS: HYDROcodone/APAP 5-325MG 1 EACH TAB PO PRN ×3 (01:11→13:11)
[2020-10-09] MEDS: AMPICILLIN-SULBACTAM 3 GM in SODIUM CHLORIDE 0.9% 100 ML IVPB SCH ×2 (05:08→12:07)
[2020-10-09 07:41] VITALS: BP 107/63; PULSE 81; RESP 18; TEMP 99
[2020-10-09] MEDS: levETIRAcetam IV 750 MG in SODIUM CHLORIDE 0.9% 100 ML IVPB SCH (08:39)
[2020-10-09] MEDS: HEPARIN SODIUM,PORCINE/PF 5,000 UNIT/0.5 ML SYRINGE SQ SCH (08:39)
[2020-10-09] MEDS: SODIUM CHLORIDE 0.9% 1,000 ML IV SCH (08:40)
[2020-10-09] MEDS ORDERED: ASPIRIN 81 MG PO SCH (09:00)
[2020-10-09 10:01] LABS: African American GFR (CKD) 119.4 (60.0-200.0); Albumin 3.5 g/dL (3.80-4.90); Albumin/Globulin Ratio 1.84 (1.60-3.17); Anion Gap 6.8 mmol/L (4.00-12.00); Calcium 8.2 mg/dL (8.7-10.3); Carbon Dioxide 25.2 mmol/L (21.6-31.8); Globulin 1.9 g/dL (1.6-3.3); Magnesium 1.4 mg/dL (1.5-2.4); Phosphorus 2.4 mg/dL (2.4-5.1); Potassium 3.4 mmol/L (3.5-5.5); Total Bilirubin 0.4 mg/dL (0.3-1.2); Total Protein 5.4 g/dL (6.2-8.2)
[2020-10-09 10:43] LABS: Basophils # (A) 0.01 X 10*3/uL (0.00-0.10); Basophils % (A) 0.2 %; Eosinophils # (A) 0.02 X 10*3/uL (0.04-0.35); Eosinophils % (A) 0.3 %; HCT 32.4 % (37.2-46.3); HGB 10.2 g/dL (12.0-15.0); Lymphocytes # (A) 0.57 X 10*3/uL (0.90-5.00); Lymphocytes % (A) 9.5 %; MCH 29.7 pg (27.0-32.0); MCHC 31.5 g/dL (32.0-37.0); MCV 94.2 fL (80.0-97.0); Mean Platelet Volume 12.7 fL (9.5-12.2); Monocytes # (A) 0.41 X 10*3/uL (0.20-1.00); Monocytes % (A) 6.8 %; Neutrophils # (A) 4.96 X 10*3/uL (1.80-7.70); Neutrophils % (A) 82.9 %; Platelet Count 138 X 10*3/uL (140-440); RBC 3.44 X 10*6/uL (4.10-5.20); RDW 13.4 % (11.5-14.5); WBC 5.99 X 10*3/uL (4.50-10.00)
--- NOTE | 2020-10-09 13:49 | CONS ---
CONSULTATION Marisela is a 64-year-old lady who is admitted to hospital with acute appendicitis and underwent surgery for the same. She is doing well, tolerated the surgery well. She has known coronary artery disease and had prior angioplasty. PHYSICAL EXAMINATION: Heart rate is 81 beats per minute, blood pressure is 107/60, respiratory rate 18. Chest exam reveals good air entry bilaterally. Heart exam reveals first and second heart sounds. No gallop. Examination of extremities did not reveal any edema. ASSESSMENT: 1. Coronary artery disease status post angioplasty. 2. Appendicitis status post appendectomy. PLAN: Patient is doing well. She will continue aspirin and Lipitor that she was on. We will see the patient on an as-needed basis and please arrange follow up with Cardiology on discharge. MMODL / IJN: [id number] /
[2020-10-09] MEDS ORDERED: ATORVASTATIN 40 MG TAB PO SCH (21:00)
== END 2020-10-09 13:34 | disposition home or self-care (01) ==
LOC: EC 03:40 → 4SSUR 05:34
PROVIDERS: ADMIT Student in an Organized Health Care Education/Training Program; ATTEND Student in an Organized Health Care Education/Training Program
DX: K35.80 Unspecified acute appendicitis (principal); K43.0 Incisional hernia with obstruction, without gangrene; K66.0 Peritoneal adhesions (postprocedural) (postinfection); I25.10 Atherosclerotic heart disease of native coronary artery without angina pectoris; G40.901 Epilepsy, unspecified, not intractable, with status epilepticus; E78.5 Hyperlipidemia, unspecified; J44.9 Chronic obstructive pulmonary disease, unspecified; K21.9 Gastro-esophageal reflux disease without esophagitis; Q65.89 Other specified congenital deformities of hip; F32.9 Major depressive disorder, single episode, unspecified; F41.9 Anxiety disorder, unspecified; Z20.822 Contact with and (suspected) exposure to COVID-19; Z79.82 Long term (current) use of aspirin; Z79.02 Long term (current) use of antithrombotics/antiplatelets; Z79.899 Other long term (current) drug therapy; Z88.1 Allergy status to other antibiotic agents; Z88.8 Allergy status to other drugs, medicaments and biological substances; Z96.643 Presence of artificial hip joint, bilateral; Z90.49 Acquired absence of other specified parts of digestive tract; Z86.73 Personal history of transient ischemic attack (TIA), and cerebral infarction without residual deficits; Z87.891 Personal history of nicotine dependence; Z82.0 Family history of epilepsy and other diseases of the nervous system; Z98.891 History of uterine scar from previous surgery; Z95.5 Presence of coronary angioplasty implant and graft; Z98.1 Arthrodesis status; Z95.828 Presence of other vascular implants and grafts; Z98.890 Other specified postprocedural states
CPT/HCPCS: 36430; 96376; 96361; 96374; 96375; 99285; 36415; 93306; 93005; 86900; 86901; 80053 ×2; 82150; 83605; 83690; 83735; 84100; 85025 ×2; 86850; 86920; 87635; 74177; 44970; 49655; G0378 ×2; P9073; J2270; J0780; J2405; J3010; J1170 ×2; J0295 ×2; J1953 ×2; J2370; J0330; J2704; Q9967; J1644 ×2; 88304

== ENCOUNTER → 2020-10-25 | Outpatient (CLI) | payer BC, MEDICARE ==
--- NOTE | 2020-10-25 17:34 | PN ---
PROGRESS NOTE Marisela is a 64-year-old female patient with severe obstructive sleep apnea. The patient is coming in for annual check regarding GILES. The patient was given her BiPAP machine approximately 6 months ago. At that time, the patient was diagnosed having severe obstructive sleep apnea with an AHI of 64. The patient was given a BiPAP pressure of 14/10 cm of water. The patient has been very compliant with BiPAP treatment and based on 30-day compliance, the patient has been averaging around 7.5 hours of BiPAP use per night. Her BiPAP use for more than 4 hours . Based on the machine compliancy, the patient's leak is in order of 26 L/minute. Tidal volume is at 420 with a rate of 17 and ventilation of 7.5. Her AHI is down to 2.11 while on treatment. The patient is using a Vitare wear medium-size full face mask. No major somnolence or sleepiness during the day. Her sleep quality is improved. No snoring. Does not take any long naps during the day. She is much improved and clinically she is benefitting from the BiPAP treatment. REVIEW OF SYSTEMS: Fourteen-point review of system was done. Positive findings are mentioned in history of present illness. PHYSICAL EXAMINATION: BP is 173/71, pulse is 90, respirations 20, temperature 97.6, weight is 237. Saturation 95% on room air. GENERAL APPEARANCE: Obese, calm, comfortable. No acute distress. HEAD is atraumatic, normocephalic. NECK: Supple. No JVD. No goiter or neck masses. Mallampati class 4. LUNGS: Clear to auscultation. HEART: Heart sounds are regular rate and rhythm. Normal S1, S2, no murmurs. ABDOMEN: Soft, nontender. No organomegaly. EXTREMITIES: No edema. No cyanosis or clubbing. NEUROLOGIC: Awake and alert. There is no focal neurological deficits. PSYCHIATRIC: Negative for anxiety or depression. IMPRESSION: 1. Severe obstructive sleep apnea, AHI of 64, currently on a BiPAP pressure of 14/10 with successful treatment. 2. Chronic hypersomnia improved with BiPAP treatment. 3. Severe nocturnal oxygen desaturation improved with BiPAP treatment. 4. History of cerebrovascular accident. 5. Seizure disorder. 6. Depression. 7. Acid reflux. 8. History of sleep talking recovered. 9. Hypertension with elevated blood pressure. PLAN: 1. Report back to the primary care physician regarding blood pressure control. 2. Continue BiPAP at same level of pressure. 3. Refill supplies. 4. Set up the humidity and the temperature of the tubing to automatic mode. 5. Encourage weight loss. 6. See me back in a year's time in followup. Treatment is successful for now. MMODL / IJN: [id number] /

== ENCOUNTER → 2021-02-20 | Outpatient (CLI) | payer MEDICARE ==
[2021-02-20 16:08] LABS: Chol/HDL Ratio 3.68 Ratio; HDL Cholesterol 50.3 mg/dL (40.00-60.00); LDL Cholesterol,Calculated 100.3 mg/dL (0.0-131.0); VLDL Calculation 34.4 mg/dL (5.00-40.00)
== END | disposition home or self-care (01) ==
LOC: LABWHC1 09:33
PROVIDERS: ATTEND Internal Medicine Cardiovascular Disease
DX: E78.2 Mixed hyperlipidemia (principal)
CPT/HCPCS: 36415; 80061; 84450; 84460

== ENCOUNTER → 2021-09-22 | Outpatient (CLI) | payer MEDICARE ==
[2021-09-22 19:12] LABS: HCT 40.7 % (37.2-46.3); HGB 13.3 g/dL (12.0-15.0); MCH 30.7 pg (27.0-32.0); MCHC 32.7 g/dL (32.0-37.0); Mean Platelet Volume 12.9 fL (9.5-12.2); NRBC Per 100 WBC 0 /100 WBCS (0.0-0.0); Platelet Count 192 X 10*3/uL (140-440); RBC 4.33 X 10*6/uL (4.10-5.20); RDW 12.7 % (11.5-14.5); WBC 5.18 X 10*3/uL (4.50-10.00)
[2021-09-22 19:32] LABS: African American GFR (CKD) 106.7 (60.0-200.0); Anion Gap 10.8 mmol/L (10.00-18.00); BUN/Creat Ratio 15.53 Ratio (12.00-20.00); Blood Urea Nitrogen 10.7 mg/dL (9.0-27.0); Calcium 9.6 mg/dL (8.7-10.3); Carbon Dioxide 24.9 mmol/L (20.0-27.5); Potassium 4.6 mmol/L (3.5-5.5)
== END | disposition home or self-care (01) ==
LOC: LABWHC1 10:26
PROVIDERS: ATTEND Internal Medicine Cardiovascular Disease
DX: E78.2 Mixed hyperlipidemia (principal)
CPT/HCPCS: 36415; 80048; 84443; 85027

== ENCOUNTER → 2022-01-23 | Outpatient (CLI) | payer MEDICARE ==
--- NOTE | 2022-01-24 06:46 | PN ---
PROGRESS NOTE SUBJECTIVE: The patient is being seen for a followup. This is a case of severe obstructive sleep apnea with an AHI of 64, and the patient is currently on BiPAP therapy at a pressure of 14/10 cm of water. Since her last evaluation, the patient has gained weight. She used to weigh around 237 pounds back in October 2020 and currently she is up to 263. She is essentially sedentary. She has a history of stroke that occurred back in 2017, and since then, the patient has been quite debilitated and sedentary, and she has been gaining weight. Despite all this, her GILES treatment has been successful. The patient remains on a BiPAP at a pressure of 14/10 cm of water. The patient has been averaging around 7.5 hours of BiPAP use per night and the leak is in order of 12 L/minute. She is using a Vitera medium-sized full-face mask. Tidal volume generated by the BiPAP is around 420 mL with a rate of 16 and a minute ventilation of 6.9 L/minute. The AHI is down to 3.3. She claims that she is using the machine every night, and she feels much better once she has the machine on. During a recent travel to her daughter, she did not take her machine, and her sleep quality was essentially very poor. PHYSICAL EXAMINATION: VITAL SIGNS: Her current vitals, BP is 153/65, pulse 78, respiration 16, temperature 98.1, saturation 95% on room air. Height is 4 feet 10 inches, weight is 263. GENERAL APPEARANCE: Calm and comfortable. HEENT: Head is atraumatic and normocephalic. NECK: Supple. No JVD. No goiter or neck mass. Mallampati class 4. LUNGS: Clear to auscultation. HEART: Sounds regular, rhythm normal. S1, S2. no murmurs. ABDOMEN: Soft, nontender. No organomegaly. Obese. EXTREMITIES: +1 pitting edema. There is no cyanosis or clubbing. IMPRESSION: 1. Severe obstructive sleep apnea. Apnea-hypopnea index of 64. 2. Chronic hypersomnia, improved with BiPAP therapy and treatment is successful and the patient is compliant. 3. Obesity with interval weight gain. Weight is up to 263 and the body mass index is 49. 4. History of cerebrovascular accident back in 2016, and the patient is moving around with the help of a walker. 5. Seizure disorder, currently inactive and stable. 6. Depression. 7. Acid reflux. 8. Sleep talking, recovered. 9. Hypertension. PLAN: 1. Tighter control of cardiovascular risk factors including the blood pressure. 2. Continue BiPAP therapy at the same level of pressure of 14/10 cm of water. 3. Encourage weight loss as the patient has gained significant amount of weight since last evaluation. 4. Refill supplies including a Vitera full-face mask. 5. We will continue to follow. See me back in followup in a year's time. All of the supplies were refilled. MMODL / IJN: [id number] /
== END ==
LOC: SLEEP 12:53
PROVIDERS: ATTEND Internal Medicine Critical Care Medicine
DX: G47.33 Obstructive sleep apnea (adult) (pediatric) (principal); K21.9 Gastro-esophageal reflux disease without esophagitis; F32.A Depression, unspecified; G40.909 Epilepsy, unspecified, not intractable, without status epilepticus; I10 Essential (primary) hypertension; Z87.891 Personal history of nicotine dependence; Z99.89 Dependence on other enabling machines and devices; Z88.1 Allergy status to other antibiotic agents; Z88.8 Allergy status to other drugs, medicaments and biological substances; E66.9 Obesity, unspecified; Z68.42 Body mass index [BMI] 45.0-49.9, adult; Z86.73 Personal history of transient ischemic attack (TIA), and cerebral infarction without residual deficits
CPT/HCPCS: 99212

== ENCOUNTER → 2022-02-27 | Outpatient (CLI) | payer MEDICARE ==
[2022-02-27 11:33] LABS: INR 0.9 (<1.2); Partial Thromboplastin Time 22.9 sec (22.0-30.0); Prothrombin Time 10.2 sec (9.0-12.0)
[2022-02-27 14:18] LABS: HCT 41.4 % (37.2-46.3); HGB 13.3 g/dL (12.0-15.0); MCH 29.9 pg (27.0-32.0); MCHC 32.1 g/dL (32.0-37.0); NRBC Per 100 WBC 0 /100 WBCS (0.0-0.0); Platelet Count 193 X 10*3/uL (140-440); RBC 4.45 X 10*6/uL (4.10-5.20); WBC 5.26 X 10*3/uL (4.50-10.00)
[2022-02-27 14:34] LABS: % Iron Saturation 25.77 (12.00-45.00); ALT 45 U/L (8-44); AST 31 U/L (13-35); African American GFR (CKD) 103.1 (60.0-200.0); Albumin 4.2 g/dL (3.8-4.9); Albumin/Globulin Ratio 1.39 (1.60-3.17); Alkaline Phosphatase 128 U/L (41-126); BUN/Creat Ratio 26.79 Ratio (12.00-20.00); Blood Urea Nitrogen 19.1 mg/dL (9.0-27.0); Calcium 9.7 mg/dL (8.7-10.3); Carbon Dioxide 27.1 mmol/L (20.0-27.5); Chloride 105 mmol/L (96-109); Ferritin 46.1 ng/mL (10.0-291.0); Glucose 106 mg/dL (70-110); Iron 105 ug/dL (50-170); Magnesium 2.1 mg/dL (1.5-2.4); Non-African American GFR(CKD) 88.9 (60.0-200.0); Phosphorus 3.2 mg/dL (2.4-5.1); Potassium 4.2 mmol/L (3.5-5.5); Sodium 141 mmol/L (135-145); Total Iron Binding Capacity 407 ug/dL (228-460); Total Protein 7.1 g/dL (6.2-8.2)
[2022-02-27 14:46] LABS: Chol/HDL Ratio 3.82 Ratio; LDL Cholesterol,Calculated 87.8 mg/dL (0.0-131.0); Prealbumin 22.6 mg/dL (18.0-42.0)
[2022-02-28 11:26] LABS: Zinc, Serum 79 ug/dL (60-130)
[2022-03-01 06:01] LABS: Anabasine Urine <2.0 ng/mL (<2.0)
[2022-03-01 06:15] LABS: Vitamin A 62 ug/dL (38-106)
[2022-03-01 09:35] LABS: Vit B1(Thiamine) 57 ug/L (38-122)
== END | disposition home or self-care (01) ==
LOC: LABWHC1 09:56
PROVIDERS: ATTEND Surgery Plastic and Reconstructive Surgery
DX: E66.01 Morbid (severe) obesity due to excess calories (principal); E89.1 Postprocedural hypoinsulinemia; D50.8 Other iron deficiency anemias; K91.2 Postsurgical malabsorption, not elsewhere classified; E44.0 Moderate protein-calorie malnutrition; E55.9 Vitamin D deficiency, unspecified; K74.1 Hepatic sclerosis; N19 Unspecified kidney failure; T56.894A Toxic effect of other metals, undetermined, initial encounter; K50.90 Crohn's disease, unspecified, without complications
CPT/HCPCS: 84255; 84134; 84425; 80061; 80053; 82607; 82728; 82525; 82746; 83540; 83550; 83735; 84100; 84443; 84590; 84630; 85027; 85610; 85730; 82306; 83970; 83036; 80307; 36415; G0480; G0482; 80323

== ENCOUNTER 2022-10-22 09:04 | Day surgery (SDC) | payer MEDICARE ==
[2022-10-19 12:29] VITALS: BMI 52.2
--- NOTE | 2022-10-22 07:04 | P.GSHP ---
History of Present Illness H&P Date: 10/22/22 CHIEF COMPLAINT: GERD HISTORY OF PRESENT ILLNESS: The patient is a 66-year-old female who presents reports gastroesophageal reflux disease. Upper endoscopy was offered for further evaluation and management. PAST MEDICAL HISTORY: Please see list. PAST SURGICAL HISTORY: Please see list. MEDICATIONS: Please see list. ALLERGIES: Please see list. SOCIAL HISTORY: No illicit drug use FAMILY HISTORY: No reports of Crohn disease or ulcerative colitis. REVIEW OF ORGAN SYSTEMS: CONSTITUTIONAL: No reports of fevers or chills. GI: Denies any blood in stools or constipation. PHYSICAL EXAM: VITAL SIGNS: Stable GENERAL: Well-developed and pleasant in no acute distress. HEENT: No scleral icterus. Extraocular movements grossly intact. Moist buccal mucosa. NECK: Supple without lymphadenopathy. CHEST: Unlabored respirations. Equal bilateral excursions. CARDIOVASCULAR: Regular rate and rhythm. Distal 2+ pulses. ABDOMEN: Soft, nondistended. MUSCULOSKELETAL: No clubbing, cyanosis, or edema. ASSESSMENT: 1. Gastroesophageal reflux disease PLAN: 1. Recommend proceeding with an upper endoscopy Past Medical History Past Medical History: Coronary Artery Disease (CAD), COPD, CVA/TIA, Hyperlipidemia, Hypertension, Seizure Disorder, Sleep Apnea/CPAP/BIPAP Additional Past Medical History / Comment(s): yodit Hip dysplasia. last seizure 2 yrs ago, stroke x 2-aphasia and rt side weakness, SOB History of Any Multi-Drug Resistant Organisms: None Reported Past Surgical History: Appendectomy, Back Surgery, Section, Cholecystectomy, Heart Catheterization With Stent, Hysterectomy, Joint Replacement, Orthopedic Surgery, Tonsillectomy Additional Past Surgical History / Comment(s): cervical spinal fusion, yodit hip replacements. one cardiac stent 2016, left carotid artery stent 2019 Past Anesthesia/Blood Transfusion Reactions: Postoperative Nausea & Vomiting (PONV) Date of Last Stent Placement:: 2018 Smoking Status: Former smoker - Past Family History Mother Family Medical History: No Reported History Father Additional Family Medical History / Comment(s): Alzheimer's disease. Medications and Allergies Home Medications Medication Instructions Recorded Confirmed Type Aspirin [Adult Low Dose Aspirin EC] 162 mg PO DAILY 05/28/18 10/19/22 History Atorvastatin [Lipitor] 80 mg PO DAILY 05/28/18 10/19/22 History Sertraline [Zoloft] 50 mg PO HS 05/28/18 10/19/22 History levETIRAcetam [Keppra] 750 mg PO BID 10/08/20 10/19/22 History Losartan [Cozaar] 25 mg PO DAILY 01/10/22 10/19/22 History Allergies Allergy/AdvReac Type Severity Reaction Status Date / Time cephalexin [From Keflex] Allergy Rash/Hives Verified 10/19/22 12:19 diazepam [From Valium] AdvReac Confusion Verified 10/19/22 12:19
[2022-10-22] MEDS ORDERED: LACTATED RINGERS 1,000 ML IV ONE (09:15)
[2022-10-22] MEDS ORDERED: LIDOCAINE 1% (10MG/ML) FOR IV START INTRADERMA PRN (09:17)
[2022-10-22] MEDS ORDERED: LACTATED RINGERS 1,000 ML IV SCH (09:17)
[2022-10-22 09:40] VITALS: TEMP 96.8
[2022-10-22] MEDS ORDERED: LIDOCAINE 2% INJ 20 MG/ML (2 ML VIAL) ONE (09:53)
[2022-10-22] MEDS ORDERED: PROPOFOL 10 MG/ML 20 ML VIAL IV ONE (09:53)
--- NOTE | 2022-10-22 10:17 | P.PCN ---
Date of Procedure: 10/22/22 Description of Procedure: PREOPERATIVE DIAGNOSIS: Gastroesophageal reflux disease. Morbid obesity. POSTOPERATIVE DIAGNOSIS: Gastroesophageal reflux disease. Morbid obesity. Gastritis. Duodenitis Diaphragmatic hiatal hernia OPERATION: Esophagogastroduodenoscopy with biopsies along antrum, and duodenum SURGEON: Ayse Murphy MD ANESTHESIA: MAC. INDICATIONS: The patient is a 66-year-old female who presents with reflux disease. Benefits and risks of the procedure were described. Informed consent was obtained. DESCRIPTION: The patient was brought into the endoscopy suite and laid in the left lateral decubitus position. An Olympus gastroscope was passed along the posterior oropharynx down to the distal esophagus where the squamocolumnar junction was encountered at 36 cm from the incisors. The stomach was entered and no bile reflux was found. Additional findings are listed below. Biopsies with cold forceps were obtained of the antrum. The first through third portion of the duodenum was examined. Retroflexion of the scope confirmed Hill grade 3 lower esophageal valve. The squamocolumnar junction demonstrated LA grade B erosive esophagitis. The stomach was desufflated. The patient tolerated the procedure well. FINDINGS: Squamocolumnar junction 36 cm from the incisors. Diaphragmatic hiatus at 38 cm. Hiatal hernia, 2 cm Hill grade 3 lower esophageal valve. LA grade B erosive esophagitis. Biopsies obtained of duodenum with duodenitis Chronic gastritis, biopsies obtained RECOMMENDATIONS: Upper endoscopy as needed. Plan - Discharge Summary Discharge Rx Participant: Yes New Discharge Prescriptions: Continue Atorvastatin [Lipitor] 80 mg PO DAILY Sertraline [Zoloft] 50 mg PO HS Aspirin [Adult Low Dose Aspirin EC] 162 mg PO DAILY levETIRAcetam [Keppra] 750 mg PO BID Losartan [Cozaar] 25 mg PO DAILY Discharge Medication List Aspirin [Adult Low Dose Aspirin EC] 162 mg PO DAILY 05/28/18 [History] Atorvastatin [Lipitor] 80 mg PO DAILY 05/28/18 [History] Sertraline [Zoloft] 50 mg PO HS 05/28/18 [History] levETIRAcetam [Keppra] 750 mg PO BID 10/08/20 [History] Losartan [Cozaar] 25 mg PO DAILY 01/10/22 [History] [facility] [facility] [place] [place] Patient Instructions/Handouts: Duodenitis (DC), Hiatal Hernia (DC) Discharge Disposition: HOME SELF-CARE
[2022-10-22 10:30] VITALS: BP 102/61; PULSE 61; RESP 18
== END 2022-10-22 11:18 | disposition home or self-care (01) ==
LOC: ORWHC2ENDO 09:04
PROVIDERS: ATTEND Surgery Plastic and Reconstructive Surgery
DX: K29.50 Unspecified chronic gastritis without bleeding (principal); K21.00 Gastro-esophageal reflux disease with esophagitis, without bleeding; E66.01 Morbid (severe) obesity due to excess calories; K44.9 Diaphragmatic hernia without obstruction or gangrene; J44.9 Chronic obstructive pulmonary disease, unspecified; I25.10 Atherosclerotic heart disease of native coronary artery without angina pectoris; K29.80 Duodenitis without bleeding; I10 Essential (primary) hypertension; E78.5 Hyperlipidemia, unspecified; G47.33 Obstructive sleep apnea (adult) (pediatric); Z90.89 Acquired absence of other organs; Z86.73 Personal history of transient ischemic attack (TIA), and cerebral infarction without residual deficits; Z79.82 Long term (current) use of aspirin; Z90.49 Acquired absence of other specified parts of digestive tract; Z95.5 Presence of coronary angioplasty implant and graft; Z98.1 Arthrodesis status; Z90.710 Acquired absence of both cervix and uterus; Z87.891 Personal history of nicotine dependence; Z88.1 Allergy status to other antibiotic agents; Z79.899 Other long term (current) drug therapy; Z68.45 Body mass index [BMI] 70 or greater, adult
CPT/HCPCS: 43239; J2704; J2001; 88305

== ENCOUNTER → 2022-10-31 | Outpatient (CLI) | payer MEDICARE ==
[2022-10-31 16:08] VITALS: BP 99/66; PULSE 85; TEMP 98.5; BMI 54.3
--- NOTE | 2022-10-31 16:30 | P.BASOAP ---
Subjective Progress Note Date: 10/31/22 Sleeve described and consent for sleeve described. Needs walker. Objective - Vital Signs Vital signs: Vital Signs Temp 98.5 F 10/31/22 16:04 Pulse 85 10/31/22 16:04 Resp BP 99/66 10/31/22 16:04 Pulse Ox FiO2 Intake & Output 10/30/22 10/31/22 10/31/22 18:59 06:59 18:59 Weight 117.934 kg Assessment/Plan Plan: Date: 10/31/22 Initial Weight: Initial BMI: Current Weight: 117.934 kg Current BMI: 54.3 Type of Surgery: Total Volume in Band: Previous Volume: Volume Removed: Volume Added: Band Size:
== END ==
LOC: BARWHC3 15:02
PROVIDERS: ATTEND Surgery Plastic and Reconstructive Surgery
DX: E66.01 Morbid (severe) obesity due to excess calories (principal); Z68.43 Body mass index [BMI] 50.0-59.9, adult; Z88.8 Allergy status to other drugs, medicaments and biological substances; Z88.1 Allergy status to other antibiotic agents; Z87.891 Personal history of nicotine dependence
CPT/HCPCS: 99211

== ENCOUNTER → 2022-11-12 | Outpatient (CLI) | payer MEDICARE ==
[2022-11-12 11:05] VITALS: BMI 54.3
== END ==
LOC: BARWHC3 08:42
PROVIDERS: ATTEND Surgery Plastic and Reconstructive Surgery
DX: E66.01 Morbid (severe) obesity due to excess calories (principal); Z71.3 Dietary counseling and surveillance; Z68.43 Body mass index [BMI] 50.0-59.9, adult; Z88.1 Allergy status to other antibiotic agents; Z88.8 Allergy status to other drugs, medicaments and biological substances; Z87.891 Personal history of nicotine dependence
CPT/HCPCS: 97804

== ENCOUNTER → 2022-12-26 | Outpatient (CLI) | payer MEDICARE ==
[2022-12-26 17:18] LABS: Basophils # (A) 0.02 X 10*3/uL (0.00-0.10); Basophils % (A) 0.5 %; Eosinophils % (A) 2.5 %; HCT 44.3 % (37.2-46.3); HGB 14.8 d/dL (12.0-15.0); Lymphocytes # (A) 0.71 X 10*3/uL (0.90-5.00); Lymphocytes % (A) 17.4 %; MCH 31.3 pg (27.0-32.0); MCHC 33.4 d/dL (32.0-37.0); MCV 93.7 FL (80.0-97.0); Monocytes # (A) 0.51 X 10*3/uL (0.20-1.00); Monocytes % (A) 12.5 %; NRBC Per 100 WBC 0 X 10*3/uL (0.00-0.01); Neutrophils # (A) 2.73 X 10*3/uL (1.80-7.70); Neutrophils % (A) 66.9 %; Platelet Count 134 X 10*3/uL (140-440); RBC 4.73 X 10*6/uL (4.10-5.20); RDW 13.5 % (11.5-14.5); WBC 4.08 X 10*3/uL (4.50-10.00)
[2022-12-26 17:30] LABS: ALT 1530 U/L (8-44); AST 1559 U/L (13-35); Albumin/Globulin Ratio 1.38 Ratio (1.60-3.17); Alkaline Phosphatase 672 U/L (41-126); Blood Urea Nitrogen 15.3 mg/dL (9.0-27.0); Calcium 9.7 mg/dL (8.7-10.3); Carbon Dioxide 26.3 mmol/L (21.6-31.8); Chloride 100 mmol/L (96-109); Globulin 2.9 d/dL (1.6-3.3); Glucose 103 mg/dL (70-110); Potassium 4.8 mmol/L (3.5-5.5); Sodium 136 mmol/L (135-145); Total Bilirubin 0.6 mg/dL (0.3-1.2); Total Protein 6.9 d/dL (6.2-8.2)
== END | disposition home or self-care (01) ==
LOC: LABWHC1 09:48
PROVIDERS: ATTEND Psychiatry & Neurology Neurology
DX: Z01.812 Encounter for preprocedural laboratory examination (principal); Z86.73 Personal history of transient ischemic attack (TIA), and cerebral infarction without residual deficits
CPT/HCPCS: 36415; 80053; 85025

== ENCOUNTER → 2022-12-26 | Outpatient (CLI) | payer MEDICARE ==
[2022-12-26 09:29] VITALS: BP 128/72; PULSE 79; TEMP 98.3; BMI 51.4
--- NOTE | 2022-12-26 09:42 | P.BASOAP ---
Subjective Progress Note Date: 12/26/22 Patient is a wheelchair. She has lost 20 pounds in 2 months. He is on multiple heart medications and vitamins. Family at bedside. Patient deemed high risk. Emphasis on continued weight loss. Inpatient hospitalization Described. All questions addressed. Consent for sleeve gastrectomy Objective - Vital Signs Vital signs: Vital Signs Temp 98.3 F 12/26/22 09:26 Pulse 79 12/26/22 09:26 Resp BP 128/72 12/26/22 09:26 Pulse Ox FiO2 Intake & Output 12/25/22 12/26/22 12/26/22 18:59 06:59 18:59 Weight 111.584 kg Assessment/Plan Plan: Date: 12/26/22 Initial Weight: Initial BMI: Current Weight: 111.584 kg Current BMI: 51.4 Type of Surgery: Total Volume in Band: Previous Volume: Volume Removed: Volume Added: Band Size:
== END ==
LOC: BARWHC3 09:13
PROVIDERS: ATTEND Surgery Plastic and Reconstructive Surgery
DX: Z53.9 Procedure and treatment not carried out, unspecified reason (principal)
CPT/HCPCS: 99211

== ENCOUNTER 2022-12-28 09:30 | Emergency (ER) | payer MEDICARE ==
[2022-12-28 09:37] VITALS: TEMP 98.6
[2022-12-28] MEDS ORDERED: SODIUM CHLORIDE 0.9% 1,000 ML IV ONE (10:13)
--- NOTE | 2022-12-28 10:17 | ED ---
General Adult HPI - General Chief complaint: Recheck/Abnormal Lab/Rx Stated complaint: abn labs, sent by PCP Time Seen by Provider: 12/28/22 10:04 Source: patient, RN notes reviewed Mode of arrival: ambulatory Limitations: no limitations - History of Present Illness Initial comments: 67-year-old female with past medical history significant for CVA, hypertension, hyperlipidemia presents the emergency department with a chief complaint of abnormal lab work. Patient reports that she had lab work done by Dr. Katz a few days ago. She reports that she was called today with her results and was told that she had elevated liver enzymes. She was instructed to come to the emergency department for further evaluation. Patient offers no spec [facility] complaints at this time. She denies any fever, chills, fatigue, nausea, vomiting, abdominal pain, melena, hematochezia. Patient reports that she is chronically constipated. Patient is scheduled for a gastric sleeve surgery on 01/07/2023. - Related Data Home Medications Medication Instructions Recorded Confirmed Aspirin [Adult Low Dose Aspirin EC] 162 mg PO DAILY 05/28/18 12/28/22 Sertraline [Zoloft] 50 mg PO DAILY 05/28/18 12/28/22 levETIRAcetam [Keppra] 750 mg PO BID 10/08/20 12/28/22 Losartan [Cozaar] 25 mg PO DAILY 01/10/22 12/28/22 Ascorbic Acid [Vitamin C] 500 mg PO DAILY 12/28/22 12/28/22 Atorvastatin [Lipitor] 80 mg PO DAILY 12/28/22 12/28/22 Elie/D3/Mag11/Zinc/Aprn/Geovanny/Bor 1 tab PO DAILY 12/28/22 12/28/22 [Caltrate 600+D Plus Tablet] Cholecalciferol [Vitamin D3 (25 50 mcg PO DAILY 12/28/22 12/28/22 Mcg = 1000 Iu)] Lactulose 30 gm PO HS 12/28/22 12/28/22 Premier Protein Shake 1 bottle PO TID-W/MEALS 12/28/22 12/28/22 Allergies Allergy/AdvReac Type Severity Reaction Status Date / Time cephalexin [From Keflex] Allergy Rash/Hives Verified 12/28/22 13:38 diazepam [From Valium] AdvReac Confusion Verified 12/28/22 13:38 Review of Systems ROS Statement: Those systems with pertinent positive or pertinent negative responses have been documented in the HPI. ROS Other: All systems not noted in ROS Statement are negative. Past Medical History Past Medical History: Coronary Artery Disease (CAD), COPD, CVA/TIA, Hyperlipidemia, Hypertension, Seizure Disorder, Sleep Apnea/CPAP/BIPAP Additional Past Medical History / Comment(s): yodit Hip dysplasia. last seizure 2 yrs ago, stroke x 2-aphasia and rt side weakness, SOB History of Any Multi-Drug Resistant Organisms: None Reported Past Surgical History: Appendectomy, Back Surgery, Section, Cholecystectomy, Heart Catheterization With Stent, Hysterectomy, Joint Replacement, Orthopedic Surgery, Tonsillectomy Additional Past Surgical History / Comment(s): cervical spinal fusion, yodit hip replacements. one cardiac stent 2016, left carotid artery stent 2019 Past Anesthesia/Blood Transfusion Reactions: Postoperative Nausea & Vomiting (PONV) Date of Last Stent Placement:: 2017 Past Psychological History: No Psychological Hx Reported Smoking Status: Former smoker Past Alcohol Use History: Occasional Past Drug Use History: None Reported - Past Family History Mother Family Medical History: No Reported History Father Additional Family Medical History / Comment(s): Alzheimer's disease. General Exam - General Exam Comments Initial Comments: General: Alert, in no acute distress, obese Head: atraumatic normocephalic. Eyes PERRL, EOMI intact, mucous membranes moist Respiratory: Lungs clear to auscultation bilaterally Cardiovascular: Rate regular rate and rhythm Abdominal: Soft without guarding or rebound Extremities: Normal inspection with full range of motion and normal capillary refill Neuroogic: alert and oriented 3, CN II-XII intact, able to ambulate with steady gait Skin: warm dry and intact with normal color Limitations: no limitations Course Vital Signs 12/28/22 09:35 Temperature 98.6 F Pulse Rate 72 Respiratory 20 Rate Blood Pressure 111/65 O2 Sat by Pulse 98 Oximetry - Reevaluation(s) Reevaluation #1: 12/28/22 12:[address] Katz who recommends patient be transferred to [facility] in order to be evaluated by GI. Reevaluation #2: 12/28/22 12:32 Case discussed with HAILEY Mack on-call [facility] who recommends CT with contrast. He asked to be called once results are back. Reevaluation #3: 12/28/22 14:47 [place] discussed with HAILEY Mack who agrees and accepts the patient for transfer to [facility]. Reevaluation #4: 12/28/22 14:53 [place] [facility] attending [facility] who agrees and accepts the patient for ER to ER transfer. Medical Decision Making - Medical Decision Making Was pt. sent in by a medical professional or institution (, MARIANNE, DIRECTOR HOSPICE OPERATIONS, urgent care, hospital, or long term...) When possible be specific @ -[No] Did you speak to anyone other than the patient for history (EMS, parent, family, police, friend...)? What history was obtained from this source @ - Did you review nursing and triage notes (agree or disagree)? Why? @ -[I reviewed and agree with nursing and triage notes] Were old charts reviewed (outside hosp., previous admission, EMS record, old EKG, old radiological studies, urgent care reports/EKG's, long term records)? Report findings @ -[No old charts were reviewed] Differential Diagnosis (chest pain, altered mental status, abdominal pain women, abdominal pain men, vaginal bleeding, weakness, fever, dyspnea, syncope, headache, dizziness, GI bleed, back pain, seizure, CVA, palpatations, mental health, musculoskeletal)? @ -[not applicable] EKG interpreted by me (3pts min.). @ -[As above] X-rays interpreted by me (1pt min.). @ -[None done] CT interpreted by me (1pt min.). @ CT abdomen does not reveal any ductal dilation. Cholecystectomy clips are present. There is umbilical hernia. Otherwise negative CT U/S interpreted by me (1pt. min.). @ -[None done] What testing was considered but not performed or refused? (CT, X-rays, U/S, labs)? Why? @ -[None] What meds were considered but not given or refused? Why? @ -[None] Did you discuss the management of the patient with other professionals (professionals i.e. MARIANNE Carbajal, DIRECTOR HOSPICE OPERATIONS, lab, RT, psych nurse, social work assistant, social work assistant, teacher, sheriff's officer, outpatient case manager)? Give summary @ -[No] Was smoking cessation discussed for >3mins.? @ -[No] Was critical care preformed (if so, how long)? @ -[No] Were there social determinants of health that impacted care today? How? (Homelessness, low income, unemployed, alcoholism, drug addiction, transportation, low edu. Level, literacy, decrease access to med. care, [facility], rehab)? @ -[No] Was there de-escalation of care discussed even if they declined (Discuss DNR or withdrawal of care, Hospice)? DNR status @ -[No] What co-morbidities impacted this encounter? (DM, HTN, Smoking, COPD, CAD, Cancer, CVA, ARF, Chemo, Hep., AIDS, mental health diagnosis, sleep apnea, morbid obesity)? @ -[None] Was patient admitted / discharged? Hospital course, mention meds given and route, prescriptions, significant lab abnormalities, going to OR and other perti nent info. @ Transfer to [facility]. This is a pleasant 67-year-old female with a past medical history significant for hypertension and CVA who presents to the emergency department with abnormal labs. Patient had a thorough history and physical exam performed on the ED. Physical exam is essentially unremarkable. Heart rate regular rate and rhythm, lungs clear to auscultation bilaterally, abdomen soft nontender. Patient offers no specific complaints. Vital signs are stable during the course of the emergency department. Patient had lab work and imaging which revealed: AST 1800, ALT 1500, alk phos 600. I discussed the results in detail with the patient verbalized understanding all questions were addressed. She is agreeable with the plan for transfer to [facility] in order to obtain a blade sharpener evaluation. Case discussed with Dr. Cohen, ED attending who agrees and accepts the patient for ER to ER transfer with consult to Dr. Rehman, GI. Case discussed with Dr. Martel, P who agrees with plan of care Undiagnosed new problem with uncertain prognosis? @ -[No] Drug Therapy requiring intensive monitoring for toxicity (Heparin, Nitro, Insulin, Cardizem)? @ -[No] Were any procedures done? @ -[No] Diagnosis/symptom? @ -Asymptomatic Transaminitis Acute, or Chronic, or Acute on Chronic? @Acute Uncomplicated (without systemic symptoms) or Complicated (systemic symptoms)? @ -Complicated Side effects of treatment? @ -[No] Exacerbation, Progression, or Severe Exacerbation? @ -[No] Poses a threat to life or bodily function? How? (Chest pain, [place], [place], pneumonia, PE, COPD, DKA, ARF, appy, cholecystitis, CVA, Diverticulitis, Homicidal, Suicidal, threat to staff... and all critical care pts) @ -Moderate likelihood - Lab Data Result diagrams: 12/28/22 10:16 12/28/22 10:16 Lab Results 12/28/22 12/28/22 12/28/22 Range/Units 10:16 10:16 10:16 WBC 3.9 (3.8-10.6) k/uL RBC 4.44 (3.80-5.40) m/uL Hgb 14.0 (11.4-16.0) gm/dL Hct 41.8 (34.0-46.0) % MCV 94.1 (80.0-100.0) fL MCH 31.5 (25.0-35.0) pg MCHC 33.5 (31.0-37.0) g/dL RDW 13.3 (11.5-15.5) % Plt Count 116 L (150-450) k/uL MPV 11.0 Neutrophils % 70 % Lymphocytes % 16 % Monocytes % 9 % Eosinophils % 3 % Basophils % 0 % Neutrophils # 2.7 (1.3-7.7) k/uL Lymphocytes # 0.6 L (1.0-4.8) k/uL Monocytes # 0.3 (0-1.0) k/uL Eosinophils # 0.1 (0-0.7) k/uL Basophils # 0.0 (0-0.2) k/uL PT 10.8 (9.0-12.0) sec INR 1.0 (<1.2) APTT 28.3 (22.0-30.0) sec Sodium 136 L (137-145) mmol/L Potassium 4.2 (3.5-5.1) mmol/L Chloride 102 (98-107) mmol/L Carbon Dioxide 24 (22-30) mmol/L Anion Gap 10 mmol/L BUN 11 (7-17) mg/dL Creatinine 0.48 L (0.52-1.04) mg/dL Est GFR (CKD-EPI)AfAm >90 (>60 ml/min/1.73 sqM) Est GFR (CKD-EPI)NonAf >90 (>60 ml/min/1.73 sqM) Glucose 100 H (74-99) mg/dL Calcium 8.9 (8.4-10.2) mg/dL Total Bilirubin 1.1 (0.2-1.3) mg/dL Conjugated Bilirubin 0.0 (0.0-0.3) mg/dL Unconjugated Bilirubin 0.6 (0.0-1.1) mg/dL Delta Bilirubin 0.5 H (0.0-0.2) mg/dL AST 1808 H (14-36) U/L ALT 1536 H (4-34) U/L Alkaline Phosphatase 622 H (38-126) U/L Total Protein 6.8 (6.3-8.2) g/dL Albumin 3.6 (3.5-5.0) g/dL Disposition Clinical Impression: Transaminitis Disposition: OTHER INSTITUTION NOT DEFINED Referrals: Ayse Murphy MD [STAFF PHYSICIAN] - 1-2 days Time of Disposition: 14:54 - Out of Hospital Transfer - Req. Specs Out of Hospital Transfer - Requested Specifics: Other Emergency Center ([facility])
[2022-12-28 10:22] LABS: Basophils % (A) 0 %; Eosinophils # (A) 0.1 k/uL (0-0.7); Eosinophils % (A) 3 %; HCT 41.8 % (34.0-46.0); Lymphocytes # (A) 0.6 k/uL (1.0-4.8); Lymphocytes % (A) 16 %; MCH 31.5 pg (25.0-35.0); MCHC 33.5 g/dL (31.0-37.0); MCV 94.1 fL (80.0-100.0); Monocytes # (A) 0.3 k/uL (0-1.0); Monocytes % (A) 9 %; Neutrophils # (A) 2.7 k/uL (1.3-7.7); Neutrophils % (A) 70 %; Platelet Count 116 k/uL (150-450); RBC 4.44 m/uL (3.80-5.40); RDW 13.3 % (11.5-15.5); WBC 3.9 k/uL (3.8-10.6)
[2022-12-28 10:30] LABS: Partial Thromboplastin Time 28.3 sec (22.0-30.0); Prothrombin Time 10.8 sec (9.0-12.0)
[2022-12-28 10:38] LABS: African American GFR (CKD) >90 (>60 ml/min/1.73 sqM); Albumin 3.6 g/dL (3.5-5.0); Alkaline Phosphatase 622 U/L (38-126); Anion Gap 10 mmol/L; Bilirubin, Delta 0.5 mg/dL (0.0-0.2); Bilirubin,Unconjugated 0.6 mg/dL (0.0-1.1); Blood Urea Nitrogen 11 mg/dL (7-17); Calcium 8.9 mg/dL (8.4-10.2); Carbon Dioxide 24 mmol/L (22-30); Chloride 102 mmol/L (98-107); Glucose 100 mg/dL (74-99); Non-African American GFR(CKD) >90 (>60 ml/min/1.73 sqM); Potassium 4.2 mmol/L (3.5-5.1); Sodium 136 mmol/L (137-145); Total Bilirubin 1.1 mg/dL (0.2-1.3); Total Protein 6.8 g/dL (6.3-8.2)
[2022-12-28 10:53] LABS: ALT 1536 U/L (4-34)
[2022-12-28 11:06] LABS: AST 1808 U/L (14-36)
--- NOTE | 2022-12-28 13:43 | CT ---
EXAMINATION TYPE: CT abdomen pelvis w con DATE OF EXAM: 12/28/2022 COMPARISON: 10/08/2020 HISTORY: 67-year-old female abnormal enzyme LABS SENT BY PCP TECHNIQUE: Contiguous axial scanning of the abdomen and pelvis following administration of 100 ml Iso jessi 300 IV contrast. Delayed images through the kidneys and coronal/sagittal reconstructions perform ed. CT DLP: 2392.4 mGycm Automated exposure control for dose reduction was used. FINDINGS: The heart is upper limits of normal size without pericardial effusion. RCA coronary artery calcificat ions are present. Dependent atelectasis in the lungs. Tiny hernia. Liver measures 16.3 cm versus 19.0 cm in 2020. Portal venous system is patent. No biliary ductal dila tation. Cholecystectomy clips. Adrenal glands, spleen, and pancreas show no gross abnormality. Bilateral renal cysts measuring up to 4.4 cm redemonstrated. Symmetric uptake and excretion of contra st from both kidneys. Bernice hepatic lymph node measuring 1.2 cm has increased in size compared to 10/08/2020 and is probably reactive/post inflammatory. Fatty umbilical hernia measuring 3.3 cm wide with some mild fat stranding is also slightly larger. Co rrelate for any focal pain here. No dilated small bowel, free fluid, free air. Scattered mild stool. Redundant sigmoid colon. No pericolonic inflammatory change. Moderate atherosclerotic calcifications distal abdominal aorta and iliac arteries. Severe atheroscler otic change left common iliac artery. Bladder is urine distended. Extensive metal hardware artifact relating to the patient's bilateral tot al hip arthroplasties limits assessment of the pelvis. Unable to adequately assess for uterus, ovarie s, pelvic free fluid, or pelvic lymphadenopathy. Bones: Severe degenerative disc disease lower thoracic spine and L3-L4. Grade 1 anterolisthesis T12-L 1. Advanced hypertrophic facet arthropathy mid to lower lumbar spine. Possible severe spinal canal st enosis L4-L5. IMPRESSION: 1. STATUS POST CHOLECYSTECTOMY. NO BILIARY DUCTAL DILATATION. LIVER IS OVERALL NORMAL SIZE. A portahe patic lymph node has increased in size currently measuring 1.2 cm, likely reactive/post inflammatory. 2. Small fatty umbilical hernia slightly increased now measuring 3.3 cm shows some fat stranding that could represent mild inflammation. Correlate for any focal pain here.
[2022-12-28 15:05] VITALS: RESP 18
[2022-12-28 15:06] VITALS: BP 118/73; PULSE 72
== END 2022-12-28 15:48 | disposition other institution (70) ==
LOC: EC 09:30
DX: K42.9 Umbilical hernia without obstruction or gangrene (principal); J44.9 Chronic obstructive pulmonary disease, unspecified; I10 Essential (primary) hypertension; G47.30 Sleep apnea, unspecified; E78.5 Hyperlipidemia, unspecified; Z87.891 Personal history of nicotine dependence; Z79.899 Other long term (current) drug therapy; Z88.8 Allergy status to other drugs, medicaments and biological substances
CPT/HCPCS: 36415; 80053; 82248; 85025; 85610; 85730; 74177; 99285; 96360; 96361 ×4; Q9967

== ENCOUNTER → 2023-01-15 | Outpatient (CLI) | payer MEDICARE ==
--- NOTE | 2023-01-15 15:15 | P.PN ---
Progress Note - Text Progress Note Date: 01/15/23 01/15/2023, the patient is coming back to the sleep Center for a follow-up. Since her last evaluation, the patient has lost approximately 20 pounds. The patient also was supposed to undergo a bariatric surgery and she was scheduled to undergo the procedure. Nevertheless, she was found to have abnormal LFTs and the procedure was canceled. In fact she had elevated AST and ALT and investigation is in progress regarding this issue. The patient meanwhile is very compliant to BiPAP. While getting her hospital stay, she did not use her BiPAP. Nevertheless, overall, she has been extremity compliant. Compliancy data that was checked over the past 30 days showed that the patient utilized the machine 22 out of 30 and the patient has been averaging around 7.2 hours of BiPAP use per night. Her leak is in order of 70 L/m. Her generator tidal volume is 400 and had AHI is down to 2.6. Her minute ventilation is at 5.9 L/m. She is using a full facemask medium size vitera. Otherwise, her comorbid conditions are all stable. The machine is functional. No chest pain. No shortness of breath. No excessive hypersomnia or sleepiness during the day. No nausea or vomiting or abdominal pain. Her vitals indicate a BP of 133/85, pulse is 71, respirations 16, temperature is 97.5. Her [place] score is at 11. BMI is 47.4 Gen. appearance, she is obese and she is calm and comfortable, not in acute distress. Head exam was generally normal. There was no scleral icterus or corneal arcus. Mucous membranes were moist. Neck was supple and without jugular venous distension, thyromegaly, or carotid bruits. Carotids were easily palpable bilaterally. There was no adenopathy. The patient has a Mallampati class IV Lungs were clear to auscultation and percussion, and with normal diaphragmatic excursion. No wheezes or rales were noted. Cardiac exam revealed the PMI to be normally situated and sized. The rhythm was regular and no extrasystoles were noted during several minutes of auscultation. The first and second heart sounds were normal and physiologic splitting of the second heart sound was noted. There were no murmurs, rubs, clicks, or gallops .Abdominal exam revealed normal bowel sounds. The abdomen was soft, non-tender, and without masses, organomegaly, or appreciable enlargement of the abdominal aorta. Examination of the extremities revealed easily palpable radial, femoral and pedal pulses. There was no cyanosis, clubbing or edema. Examination of the skin revealed no evidence of significant rashes, suspicious appearing nevi or other concerning lesions. Neurologically, the patient has previous deficits related to a CVA and the patient is moving around with help of a walker and she has a wheelchair Assessment Severe sleep apnea with an AHI of 64. The patient remains on successful BiPAP therapy at pressure of 14/10, S mode Chronic hypersomnia, improved Obesity with interval 20 pounds weight loss, current body weight is 243 Abnormal LFTs, currently under investigation Previous history of CVA 2016, moving around with help of a walker Seizure disorder which is currently inactive and stable and she is maintained on Keppra Hypertension Acid reflux History of sleep talking, currently inactive and stable Plan Switch this patient to a VPAP auto mode, starting pressure of 4, the EPAP minimum of 6 with a maximum of 14 and a pressure support of 4. Continue using the same mask interface Which showing this patient is a VPAP auto mode well be useful in lowering her BiPAP pressures especially with underlying and ongoing weight loss Maintain good sleep hygiene measures Still considering bariatric surgery and she is seeking further workup regarding her abnormal LFTs We'll continue to follow Supplies will be refilled
== END ==
LOC: 3 N SLEEP 14:33
PROVIDERS: ATTEND Internal Medicine Critical Care Medicine
DX: G47.30 Sleep apnea, unspecified (principal); G40.909 Epilepsy, unspecified, not intractable, without status epilepticus; E66.9 Obesity, unspecified; I10 Essential (primary) hypertension; K21.9 Gastro-esophageal reflux disease without esophagitis; Z86.73 Personal history of transient ischemic attack (TIA), and cerebral infarction without residual deficits; Z88.8 Allergy status to other drugs, medicaments and biological substances; Z87.891 Personal history of nicotine dependence
CPT/HCPCS: 99212

== ENCOUNTER → 2023-01-23 | Outpatient (CLI) | payer MEDICARE ==
[2023-01-23 16:54] LABS: Albumin 3.6 d/dL (3.8-4.9); Albumin/Globulin Ratio 1.16 Ratio (1.60-3.17); Bilirubin, Conjugated 0.22 mg/dL (0.20-0.40); Bilirubin,Unconjugated 0.18 mg/dL (0.20-1.00); Globulin 3.1 d/dL (1.6-3.3); Total Bilirubin 0.4 mg/dL (0.3-1.2); Total Protein 6.7 d/dL (6.2-8.2)
[2023-01-23 19:01] LABS: INR 0.93 sec (0.93-1.11); Prothrombin Time 10.5 sec (9.9-11.9)
== END | disposition home or self-care (01) ==
LOC: LABWHC1 10:15
PROVIDERS: ATTEND Student in an Organized Health Care Education/Training Program
DX: R74.01 Elevation of levels of liver transaminase levels (principal)
CPT/HCPCS: 36415; 80076; 82784; 82977; 85610

== ENCOUNTER → 2023-01-30 | Outpatient (CLI) | payer MEDICARE ==
[2023-01-30 21:53] LABS: ALT 88 U/L (8-44); AST 55 U/L (13-35); Albumin 4.1 d/dL (3.8-4.9); Albumin/Globulin Ratio 1.41 Ratio (1.60-3.17); Alkaline Phosphatase 207 U/L (41-126); Bilirubin, Conjugated <0.20 mg/dL (0.20-0.40); Bilirubin,Unconjugated >0.30 mg/dL (0.20-1.00); Globulin 2.9 d/dL (1.6-3.3); Total Bilirubin 0.5 mg/dL (0.3-1.2)
== END | disposition home or self-care (01) ==
LOC: LABWHC1 14:24
PROVIDERS: ATTEND Student in an Organized Health Care Education/Training Program
DX: R74.01 Elevation of levels of liver transaminase levels (principal)
CPT/HCPCS: 36415; 80076

== ENCOUNTER → 2023-02-21 | Outpatient (CLI) | payer MEDICARE ==
[2023-02-21 15:55] LABS: INR <0.93 sec (0.93-1.11); Prothrombin Time 10.2 sec (9.9-11.9)
[2023-02-21 17:01] LABS: ALT 58 U/L (8-44); AST 32 U/L (13-35); Albumin 3.9 d/dL (3.8-4.9); Albumin/Globulin Ratio 1.62 Ratio (1.60-3.17); Alkaline Phosphatase 104 U/L (41-126); BUN/Creat Ratio 21.25 Ratio (12.00-20.00); Bilirubin, Conjugated <0.20 mg/dL (0.20-0.40); Bilirubin,Unconjugated >0.30 mg/dL (0.20-1.00); Calcium 9.7 mg/dL (8.7-10.3); Carbon Dioxide 26.7 mmol/L (21.6-31.8); Chloride 103 mmol/L (96-109); Chol/HDL Ratio 2.87 Ratio; GGT 81 U/L (0-38); Globulin 2.4 d/dL (1.6-3.3); Glucose 143 mg/dL (70-110); LDL Cholesterol,Calculated 102.9 mg/dL (0.0-131.0); Sodium 139 mmol/L (135-145); Total Bilirubin 0.5 mg/dL (0.3-1.2); Total Protein 6.3 d/dL (6.2-8.2)
== END | disposition home or self-care (01) ==
LOC: LABWHC1 10:51
PROVIDERS: ATTEND Nurse Practitioner
DX: I10 Essential (primary) hypertension (principal); R73.9 Hyperglycemia, unspecified; R60.9 Edema, unspecified; Z86.73 Personal history of transient ischemic attack (TIA), and cerebral infarction without residual deficits
CPT/HCPCS: 36415; 80048; 80061; 80076; 82784; 82977; 83036; 84443; 85610

== ENCOUNTER → 2023-10-02 | Outpatient (CLI) | payer MEDICARE ==
[2023-10-02 14:31] VITALS: BP 144/75; PULSE 66; RESP 14; TEMP 98.1; BMI 52.9
--- NOTE | 2023-10-02 15:09 | P.BASOAP ---
Subjective Progress Note Date: 10/02/23 She has autoimmune hepatitis and is on steroids and microfentanil. She is off steroids. Her liver enzymes are better. Plan for sleeve gastrectomy. She will needs updated paperwork from 2022 Objective - Vital Signs Vital signs: Vital Signs Temp 98.1 F 10/02/23 14:24 Pulse 66 10/02/23 14:24 Resp 14 10/02/23 14:24 BP 144/75 10/02/23 14:24 Pulse Ox FiO2 Intake & Output 10/01/23 10/02/23 10/02/23 18:59 06:59 18:59 Weight 114.759 kg Assessment/Plan Plan: Date: 10/02/23 Initial Weight: Initial BMI: Current Weight: 114.759 kg Current BMI: 52.9 Type of Surgery: Total Volume in Band: Previous Volume: Volume Removed: Volume Added: Band Size:
== END ==
LOC: BARWHC3 13:55
PROVIDERS: ATTEND Surgery Plastic and Reconstructive Surgery
DX: E66.9 Obesity, unspecified (principal); Z68.43 Body mass index [BMI] 50.0-59.9, adult; Z88.1 Allergy status to other antibiotic agents; Z88.8 Allergy status to other drugs, medicaments and biological substances; Z87.891 Personal history of nicotine dependence
CPT/HCPCS: 99211

== ENCOUNTER → 2023-10-02 | Outpatient (CLI) | payer MEDICARE ==
[2023-10-02 16:04] LABS: INR 0.9 (<1.2); Partial Thromboplastin Time 22.2 sec (22.0-30.0); Prothrombin Time 10.2 sec (10.0-12.5)
[2023-10-02 19:13] LABS: HCT 40.4 % (37.2-46.3); MCH 31.9 pg (27.0-32.0); MCHC 32.2 g/dL (32.0-37.0); MCV 99.3 FL (80.0-97.0); Mean Platelet Volume 12.1 FL (9.5-12.2); NRBC Per 100 WBC 0 X 10*3/uL (0.00-0.01); Platelet Count 149 X 10*3/uL (140-440); RBC 4.07 X 10*6/uL (4.10-5.20); RDW 12.5 % (11.5-14.5); WBC 4.57 X 10*3/uL (4.50-10.00)
[2023-10-02 23:17] LABS: ALT 41 U/L (8-44); AST 29 U/L (13-35); Albumin 4.6 g/dL (3.8-4.9); Albumin/Globulin Ratio 2.09 Ratio (1.60-3.17); Alkaline Phosphatase 115 U/L (41-126); Blood Urea Nitrogen 18.3 mg/dL (9.0-27.0); Calcium 9.9 mg/dL (8.7-10.3); Carbon Dioxide 22.5 mmol/L (21.6-31.8); Chloride 103 mmol/L (96-109); Chol/HDL Ratio 3.03 Ratio; Ferritin 72.9 ng/mL (10.0-291.0); Globulin 2.2 g/dL (1.6-3.3); Glucose 105 mg/dL (70-110); Iron 106 UG/DL (50-170); LDL Cholesterol,Calculated 82.3 mg/dL (0.0-131.0); Phosphorus 3.6 mg/dL (2.4-5.1); Potassium 4.6 mmol/L (3.5-5.5); Sodium 140 mmol/L (135-145); Total Bilirubin 0.4 mg/dL (0.3-1.2); Total Iron Binding Capacity 438 UG/DL (228-460); Total Protein 6.8 g/dL (6.2-8.2)
[2023-10-03 12:55] LABS: Zinc, Serum 91 ug/dL (60-130)
[2023-10-04 05:53] LABS: Vitamin A 59 ug/dL (38-106)
== END | disposition home or self-care (01) ==
LOC: LABPAT 15:26
PROVIDERS: ATTEND Surgery Plastic and Reconstructive Surgery
DX: E66.01 Morbid (severe) obesity due to excess calories (principal); D50.8 Other iron deficiency anemias; K91.2 Postsurgical malabsorption, not elsewhere classified; E44.0 Moderate protein-calorie malnutrition; E44.1 Mild protein-calorie malnutrition; E45 Retarded development following protein-calorie malnutrition; E55.9 Vitamin D deficiency, unspecified; K74.1 Hepatic sclerosis; N19 Unspecified kidney failure; T56.894A Toxic effect of other metals, undetermined, initial encounter; K50.90 Crohn's disease, unspecified, without complications; R00.1 Bradycardia, unspecified; R94.31 Abnormal electrocardiogram [ECG] [EKG]
CPT/HCPCS: 80053; 80061; 82306; 82525; 82607; 82728; 82746; 83036; 83540; 83550; 83735; 83970; 84100; 84134; 84255; 84425; 84443; 84590; 84630; 85027; 85610; 85730; 93005

== ENCOUNTER 2023-12-02 07:55 | Day surgery (SDC) | payer MEDICARE ==
[~2023-12-02 07:55] MED LIST changes: +LIDOCAINE 1% (10MG/ML) FOR IV START INTRADERMA PRN; -REGADENOSON 0.4 MG/5 ML SYRINGE IV ONE
--- NOTE | 2023-12-02 07:58 | P.GSHP ---
History of Present Illness H&P Date: 12/02/23 CHIEF COMPLAINT: GERD HISTORY OF PRESENT ILLNESS: The patient is a 67-year-old female who presents reports gastroesophageal reflux disease. Upper endoscopy was offered for further evaluation and management. PAST MEDICAL HISTORY: Please see list. PAST SURGICAL HISTORY: Please see list. MEDICATIONS: Please see list. ALLERGIES: Please see list. SOCIAL HISTORY: No illicit drug use FAMILY HISTORY: No reports of Crohn disease or ulcerative colitis. REVIEW OF ORGAN SYSTEMS: CONSTITUTIONAL: No reports of fevers or chills. GI: Denies any blood in stools or constipation. PHYSICAL EXAM: VITAL SIGNS: Stable GENERAL: Well-developed and pleasant in no acute distress. HEENT: No scleral icterus. Extraocular movements grossly intact. Moist buccal mucosa. NECK: Supple without lymphadenopathy. CHEST: Unlabored respirations. Equal bilateral excursions. CARDIOVASCULAR: Regular rate and rhythm. Distal 2+ pulses. ABDOMEN: Soft, nondistended. MUSCULOSKELETAL: No clubbing, cyanosis, or edema. ASSESSMENT: 1. Gastroesophageal reflux disease PLAN: 1. Recommend proceeding with an upper endoscopy Past Medical History Past Medical History: Coronary Artery Disease (CAD), COPD, CVA/TIA, Hyperlipidemia, Hypertension, Seizure Disorder, Sleep Apnea/CPAP/BIPAP Additional Past Medical History / Comment(s): yodit Hip dysplasia. last seizure 2 yrs ago, stroke x 2-aphasia and rt side weakness, SOB History of Any Multi-Drug Resistant Organisms: None Reported Past Surgical History: Appendectomy, Back Surgery, Section, Cholecystectomy, Heart Catheterization With Stent, Hysterectomy, Joint Replacement, Orthopedic Surgery, Tonsillectomy Additional Past Surgical History / Comment(s): cervical spinal fusion, yodit hip replacements. one cardiac stent 2016, left carotid artery stent 2019 Past Anesthesia/Blood Transfusion Reactions: Postoperative Nausea & Vomiting (PONV) Date of Last Stent Placement:: 2017 Smoking Status: Former smoker - Past Family History Mother Family Medical History: No Reported History Father Additional Family Medical History / Comment(s): Alzheimer's disease. Medications and Allergies Home Medications Medication Instructions Recorded Confirmed Type Aspirin [Adult Low Dose Aspirin EC] 162 mg PO DAILY 05/28/18 11/26/23 History Sertraline [Zoloft] 50 mg PO DAILY 05/28/18 11/26/23 History levETIRAcetam [Keppra] 750 mg PO BID 10/08/20 11/26/23 History Losartan [Cozaar] 25 mg PO DAILY 01/10/22 11/26/23 History Ascorbic Acid [Vitamin C] 500 mg PO DAILY 12/28/22 11/26/23 History Atorvastatin [Lipitor] 80 mg PO DAILY 12/28/22 11/26/23 History Premier Protein Shake 1 bottle PO TID-W/MEALS 12/28/22 11/26/23 History mycophenolate mofetiL [Cellcept] 1,000 mg PO BID 10/02/23 11/26/23 History Allergies Allergy/AdvReac Type Severity Reaction Status Date / Time cephalexin [From Keflex] Allergy Rash/Hives Verified 11/26/23 15:40 diazepam [From Valium] AdvReac Confusion Verified 11/26/23 15:40
[2023-12-02 08:21] VITALS: TEMP 98
[2023-12-02] MEDS: LACTATED RINGERS 1,000 ML IV SCH (08:22)
[2023-12-02] MEDS: IV FLUID CONTINUATION 1,000 ML IV ONE (08:22)
[2023-12-02] MEDS ORDERED: PROPOFOL 10 MG/ML 20 ML VIAL IV ONE (08:33)
[2023-12-02 09:15] VITALS: RESP 16
[2023-12-02 09:37] VITALS: BP 163/72; PULSE 70
--- NOTE | 2023-12-04 23:05 | P.PCN ---
Date of Procedure: 12/02/23 Description of Procedure: PREOPERATIVE DIAGNOSIS: Gastroesophageal reflux disease. Morbid obesity. POSTOPERATIVE DIAGNOSIS: Gastroesophageal reflux disease. Morbid obesity. Gastritis. Diaphragmatic hiatal hernia OPERATION: Esophagogastroduodenoscopy with biopsies along esophagus, antrum and duodenum SURGEON: Ayse Murphy MD ANESTHESIA: MAC. INDICATIONS: The patient is a 67-year-old female who presents with reflux disease. Benefits and risks of the procedure were described. Informed consent was obtained. DESCRIPTION: The patient was brought into the endoscopy suite and laid in the left lateral decubitus position. An Olympus gastroscope was passed along the posterior oropharynx down to the distal esophagus where the squamocolumnar junction was encountered at 37 cm from the incisors. The stomach was entered and no bile reflux was found. Additional findings are listed below. Biopsies with cold forceps were obtained of the antrum. The first through third portion of the duodenum was examined. Retroflexion of the scope confirmed Hill grade 3 lower esophageal valve. The squamocolumnar junction demonstrated LA grade B erosive esophagitis. The stomach was desufflated. The patient tolerated the procedure well. FINDINGS: Squamocolumnar junction 37 cm from the incisors. Diaphragmatic hiatus at 40 cm. Hiatal hernia, 3 cm Hill grade 3 lower esophageal valve. LA grade B erosive esophagitis. Biopsies obtained. Biopsies obtained of the duodenum. Chronic gastritis with biopsies obtained. RECOMMENDATIONS: Upper endoscopy as needed. Plan - Discharge Summary Discharge Rx Participant: No New Discharge Prescriptions: Continue Sertraline [Zoloft] 50 mg PO DAILY Aspirin [Adult Low Dose Aspirin EC] 162 mg PO DAILY Ascorbic Acid [Vitamin C] 500 mg PO DAILY Atorvastatin [Lipitor] 80 mg PO DAILY Premier Protein Shake 1 bottle PO TID-W/MEALS mycophenolate mofetiL [Cellcept] 1,000 mg PO BID levETIRAcetam [Keppra] 750 mg PO BID Losartan [Cozaar] 25 mg PO DAILY Discharge Medication List Aspirin [Adult Low Dose Aspirin EC] 162 mg PO DAILY 05/28/18 [History] Sertraline [Zoloft] 50 mg PO DAILY 05/28/18 [History] levETIRAcetam [Keppra] 750 mg PO BID 10/08/20 [History] Losartan [Cozaar] 25 mg PO DAILY 01/10/22 [History] Ascorbic Acid [Vitamin C] 500 mg PO DAILY 12/28/22 [History] Atorvastatin [Lipitor] 80 mg PO DAILY 12/28/22 [History] Premier Protein Shake 1 bottle PO TID-W/MEALS 12/28/22 [History] mycophenolate mofetiL [Cellcept] 1,000 mg PO BID 10/02/23 [History] [place] [facility] [facility] Patient Instructions/Handouts: *Surgery [facility] - (Anesthesia) Discharge Instructions Outpatient Surgery, Gastritis (DC), Upper Endoscopy (DC) Discharge Disposition: HOME SELF-CARE
== END 2023-12-02 10:03 | disposition home or self-care (01) ==
LOC: ORWHC2ENDO 07:55
PROVIDERS: ATTEND Surgery Plastic and Reconstructive Surgery
DX: K29.50 Unspecified chronic gastritis without bleeding (principal); K21.00 Gastro-esophageal reflux disease with esophagitis, without bleeding; K44.9 Diaphragmatic hernia without obstruction or gangrene; E66.01 Morbid (severe) obesity due to excess calories; E78.5 Hyperlipidemia, unspecified; G40.909 Epilepsy, unspecified, not intractable, without status epilepticus; I10 Essential (primary) hypertension; I25.10 Atherosclerotic heart disease of native coronary artery without angina pectoris; G47.33 Obstructive sleep apnea (adult) (pediatric); J44.9 Chronic obstructive pulmonary disease, unspecified; Z86.73 Personal history of transient ischemic attack (TIA), and cerebral infarction without residual deficits; Z87.891 Personal history of nicotine dependence; Z88.1 Allergy status to other antibiotic agents; Z90.49 Acquired absence of other specified parts of digestive tract; Z90.710 Acquired absence of both cervix and uterus; Z79.82 Long term (current) use of aspirin; Z79.899 Other long term (current) drug therapy; Z95.5 Presence of coronary angioplasty implant and graft
CPT/HCPCS: 88305; 43239; J2704

== ENCOUNTER → 2024-01-23 | Outpatient (CLI) | payer MEDICARE ==
--- NOTE | 2024-01-24 19:18 | BD ---
EXAMINATION TYPE: Axial Bone Density DATE OF EXAM: 01/23/2024 CLINICAL HISTORY: 68 years old Female. ICD-10 CODE: Z78.0 Post menopausal Height: 58 in Weight: 237 lbs FRAX RISK QUESTIONS: Family History (Parent hip fracture): yes father Secondary Osteoporosis: 5. Chronic liver disease: yes immune hepatitis RISK FACTORS HISTORY OF: Surgery to Spine/Hip(right/left): yes l-spine age 20's and yodit hip replacements in her 40s (pt had ch ariosteotomy pt did not have hip sockets age 19) Bone mineral density about the L Wrist (g/cm2): 0.653 T Score values are as follows: -----Dist. R+U: 0.1 -----Prox. R+U: -0.6 -----Radius total: -0.3 Z Score values are as follows: -----Dist. R+U: 1.6 -----Prox. R+U: 0.9 -----Radius total: 1.2 Bone mineral density baseline IMPRESSION: Normal (Values between +1 and -1 indicate normal bone mass). Consider repeating this study in 5 year s or sooner if there is some new clinical indication. NOTE: T-SCORE=SD OF THE YOUNG ADULT MEAN.
--- NOTE | 2024-01-26 11:51 | MM ---
Reason for Exam: Screening (asymptomatic). Last mammogram was performed 5 year(s) and 8 month(s) ago. Patient History: Menarche at age 15. First Full-Term at age 24. Postmenopausal. Maternal grandmother had breast cancer, age 80. Risk Values: Daksha 5 year model risk: 1.4%. NCI Lifetime model risk: 4.8%. Prior Study Comparison: 05/28/2018 Bilateral Screening Mammogram, [facility]. Tissue Density: There are scattered areas of fibroglandular density. Findings: Analyzed By CAD. Right breast: There is no suspicious group of microcalcifications or new suspicious mass. Left breast: There is no suspicious group of microcalcifications or new suspicious mass. Overall Assessment: Negative, BI-RAD 1 Management: Screening Mammogram of both breasts in [address] [facility] will attempt to contact patient to return for supplemental views and ultrasound if indicated. Patient should continue monthly self-breast exams. A clinical breast exam by your physician is recommended on an annual basis. This exam should not preclude additional follow-up of suspicious palpable abnormalities. Note on Daksha scores and lifetime risk: 1. A Daksha score greater than 3% is considered moderate risk. If this is the case, consider specialist referral to assess eligibility for a risk reducing agent. 2. If overall lifetime risk for the development of breast cancer is 20% or higher, the patient may qualify for future screening with alternating mammogram and breast MRI. Electronically signed and approved by: Michael Celestin DO
== END | disposition home or self-care (01) ==
LOC: RADBDWWP 10:53
PROVIDERS: ATTEND Family Medicine
DX: Z12.31 Encounter for screening mammogram for malignant neoplasm of breast (principal); Z78.0 Asymptomatic menopausal state; Z80.3 Family history of malignant neoplasm of breast; R92.333 Mammographic heterogeneous density, bilateral breasts
CPT/HCPCS: 77067; 77080

== ENCOUNTER → 2024-02-04 | Outpatient (CLI) | payer MEDICARE | END | disposition home or self-care (01) | LOC: LABWHC1 09:06 | PROVIDERS: ATTEND Psychiatry & Neurology Neurology | DX: G40.009 Localization-related (focal) (partial) idiopathic epilepsy and epileptic syndromes with seizures of localized onset, not intractable, without status epilepticus (principal) | CPT/HCPCS: 36415; 80177 ==

== ENCOUNTER → 2024-02-04 | Outpatient (CLI) | payer MEDICARE ==
[2024-02-04 15:40] LABS: ALT 29 U/L (8-44); AST 23 U/L (13-35); Albumin 4.3 g/dL (3.8-4.9); Albumin/Globulin Ratio 2.15 Ratio (1.60-3.17); Alkaline Phosphatase 86 U/L (41-126); Calcium 9.7 mg/dL (8.7-10.3); Carbon Dioxide 24.7 mmol/L (21.6-31.8); Chloride 104 mmol/L (96-109); Glucose 108 mg/dL (70-110); Potassium 4.6 mmol/L (3.5-5.5); Sodium 139 mmol/L (135-145); Total Bilirubin 0.5 mg/dL (0.3-1.2); Total Protein 6.3 g/dL (6.2-8.2)
[2024-02-04 15:41] LABS: Basophils # (A) 0.01 X 10*3/uL (0.00-0.10); Basophils % (A) 0.2 %; Eosinophils # (A) 0.13 X 10*3/uL (0.04-0.35); Eosinophils % (A) 2.9 %; HCT 42.9 % (37.2-46.3); HGB 14.2 g/dL (12.0-15.0); Lymphocytes # (A) 1.02 X 10*3/uL (0.90-5.00); Lymphocytes % (A) 22.5 %; MCH 30.8 pg (27.0-32.0); MCHC 33.1 g/dL (32.0-37.0); MCV 93.1 FL (80.0-97.0); Mean Platelet Volume 13.3 FL (9.5-12.2); Monocytes # (A) 0.27 X 10*3/uL (0.20-1.00); NRBC Per 100 WBC 0 X 10*3/uL (0.00-0.01); Neutrophils # (A) 3.09 X 10*3/uL (1.80-7.70); Neutrophils % (A) 68.2 %; Platelet Count 139 X 10*3/uL (140-440); RBC 4.61 X 10*6/uL (4.10-5.20); RDW 12.3 % (11.5-14.5); WBC 4.53 X 10*3/uL (4.50-10.00)
== END | disposition home or self-care (01) ==
LOC: LABPAT 09:04
PROVIDERS: ATTEND Surgery Plastic and Reconstructive Surgery
DX: Z01.812 Encounter for preprocedural laboratory examination (principal)
CPT/HCPCS: 36415; 80053; 85025; 86850; 86900; 86901

== ENCOUNTER 2024-02-10 11:53 | Inpatient (IN) | payer MEDICARE ==
--- NOTE | 2024-02-10 11:52 | P.GSHP ---
History of Present Illness H&P Date: 02/10/24 CHIEF COMPLAINT: Morbid obesity HISTORY OF PRESENT ILLNESS: Marisela Brar is a 68-year-old female who comes with lifelong morbid obesity. As result of morbid obesity, she has developed diabetes type 2, hypertensive heart disease, obstructive sleep apnea, hyperlipidemia, osteoarthritis of the hips and knees, including autoimmune hepatitis. She has completed medical supervised weight loss. She completed medical including cardiac assessment. She has completed psychological risk assessment. All surgical options were reviewed. She elected for sleeve gastrectomy. At height of 4 feet 8 inches, ideal body weight is 111 pounds. She comes in 232 pounds. Body mass index is 52.0. She is 121 pounds overweight. PAST MEDICAL HISTORY: 1. Morbid obesity due to excess calories 2. Body mass index of 52.0 3. Osteoarthritis of the knees. 4. Osteoarthritis of the lower back. 5. Hypertensive heart disease. 6. Gastroesophageal reflux disease 7. Hyperlipidemia 8. Obstructive sleep apnea 9. Diabetes type 2 10. Fatty liver disease 11. Autoimmune hepatitis PAST SURGICAL HISTORY: See list HOME MEDICATIONS: See list ALLERGIES: See list SOCIAL HISTORY: No current tobacco abuse disorder. FAMILY HISTORY: No family history of ulcerative colitis disease or Crohn's disease. Family history of morbid obesity. No lupus in the family. No reports of stomach or esophageal cancer. REVIEW OF ORGAN SYSTEMS: CONSTITUTIONAL: At height of 4 feet 8 inches, ideal body weight is 111 pounds. She comes in 232 pounds. Body mass index is 52.0. She is 121 pounds overweight. HEENT: Denies any active troubles with vision or hearing. ENDOCRINE: Has diabetes. Has hypothyroidism. CARDIOVASCULAR: Past reports of palpitations or heart attacks or chest pain. RESPIRATORY: Has daytime somnolence. GASTROINTESTINAL: Denies any bright red blood per rectum. Has gastroesophageal reflux disease. Has autoimmune hepatitis, in remission. MUSCULOSKELETAL: Has lower back pain and joint pain. Has osteoarthritis of the knees. NEURO: No headaches. No seizure disorders. PSYCH: Has depression. No suicidal ideation. RHEUMATOLOGIC: No lupus. No rheumatoid arthritis. HEMATOLOGIC: Denies any abnormal bleeding or bruising. No personal history of DVTs. SKIN: Has rash. No skin cancer. PHYSICAL EXAM: VITAL SIGNS: Height 4 foot 8 inches, weight 232 pounds. BMI 52.0 GENERAL: Well-developed in no acute distress. HEENT: No scleral icterus. Extraocular movements grossly intact. Hears conv ersational speech. No nasal drainage. NECK: Supple without lymphadenopathy. CHEST: Nonlabored respirations with equal bilateral excursions. CARDIOVASCULAR: Regular rate and regular rhythm. Distal 2+ pulses. ABDOMEN: Obese, soft, nontender, nondistended. MUSCULOSKELETAL: No clubbing, cyanosis. NEURO: No focal or lateralizing signs. Cranial nerves 2 through 12 grossly within normal limits. PSYCH: Appropriate affect. Alert and oriented to person, place and time. SKIN: Good skin turgor. Well perfused. ASSESSMENT: 1. Morbid obesity due to excess calories 2. Body mass index of 52.0 3. Osteoarthritis of the knees. 4. Osteoarthritis of the lower back. 5. Hypertensive heart disease. 6. Gastroesophageal reflux disease 7. Hyperlipidemia 8. Obstructive sleep apnea 9. Diabetes type 2 10. Fatty liver disease 11. Autoimmune hepatitis PLAN: 1. Bariatric options between a sleeve, band and a Carmen-en-Y gastric bypass were reviewed in detail. The patient elected for a sleeve gastrectomy. Robotic assisted approach described. 2. The [place] [facility] Data was also reviewed with benefits and risks as described. 3. An 8 page second-generation bariatric consent form was reviewed in detail including potential of bleeding, infection, leaks, adequate weight loss, nutritional deficiencies which the patient demonstrated understanding of the risks. 4. A 2 week high-protein low caloric 800 kcal diet described to address hepatomegaly. 5. Preoperative labs including complete metabolic panel and CBC with type and screen recommended. 6. DVT prophylaxis per [place] [facility] collaborative. 7. Antibiotic prophylaxis. 8. Inpatient hospitalization anticipated for more than 2 nights. 9. All questions and concerns were addressed with the patient. 10. She is at elevated risk for perioperative complications secondary to pre- existing diabetes type 2, obstructive sleep apnea, pre-existing coronary artery disease. 11. Overall, patient has expressed understanding of bariatric care including postoperative diet and commitment of lifestyle. Patient should benefit from surgical intervention for correction of her morbid obesity. Past Medical History Past Medical History: Coronary Artery Disease (CAD), COPD, CVA/TIA, Hyperlipidemia, Hypertension, Seizure Disorder, Sleep Apnea/CPAP/BIPAP Additional Past Medical History / Comment(s): borderline diabetes,yodit Hip dysplasia. 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 one cardiac stent 2016, left carotid artery stent 2019 Past Anesthesia/Blood Transfusion Reactions: Postoperative Nausea & Vomiting (PONV) Additional Past Anesthesia/Blood Transfusion Reaction / Comment(s): no hx blood transfusion but had autologeous blood Date of Last Stent Placement:: 2017 Smoking Status: Former smoker - Past Family History Mother Family Medical History: Cancer Additional Family Medical History / Comment(s): skin Father Additional Family Medical History / Comment(s): Alzheimer's disease. Medications and Allergies Home Medications Medication Instructions Recorded Confirmed Type Aspirin [Adult Low Dose Aspirin EC] 162 mg PO DAILY 05/28/18 02/06/24 History Sertraline [Zoloft] 50 mg PO DAILY 05/28/18 02/06/24 History levETIRAcetam [Keppra] 750 mg PO BID 10/08/20 02/06/24 History Losartan [Cozaar] 25 mg PO QAM 01/10/22 02/06/24 History Atorvastatin [Lipitor] 40 mg PO DAILY 12/28/22 02/06/24 History Premier Protein Shake 1 bottle PO TID-W/MEALS 12/28/22 02/06/24 History mycophenolate mofetiL [Cellcept] 1,000 mg PO BID 10/02/23 02/06/24 History Acetaminophen [Acetaminophen 8 hr] 650 mg PO Q8H PRN 02/06/24 02/06/24 History Allergies Allergy/AdvReac Type Severity Reaction Status Date / Time cephalexin [From Keflex] Allergy Rash/Hives Verified 02/06/24 13:10 diazepam [From Valium] AdvReac Confusion Verified 02/06/24 13:10
[2024-02-10] MEDS: IV FLUID CONTINUATION 1,000 ML IV ONE ×2 (12:37)
[2024-02-10] MEDS ORDERED: LIDOCAINE 1% (10MG/ML) FOR IV START INTRADERMA PRN (12:37)
[2024-02-10] MEDS ORDERED: HYDROmorphone 0.5 MG/0.5 ML SYRINGE IVP PRN (12:37)
[2024-02-10 12:59] LABS: Glucose,Whole Blood 86 mg/dL (70-110)
[2024-02-10] MEDS: LACTATED RINGERS 1,000 ML IV SCH (13:10)
[2024-02-10] MEDS: ONDANSETRON 4 MG/2 ML VIAL IVP ONE (13:11)
[2024-02-10] MEDS: ALVIMOPAN 12 MG CAPSULE PO PRN (13:11)
[2024-02-10] MEDS: ACETAMINOPHEN TAB 500 MG TAB PO PRN (13:11)
[2024-02-10] MEDS: DEXAMETHASONE SOD PHOSPHATE 4 MG/ML 1 ML VIAL IV ONE (13:11)
[2024-02-10] MEDS: MIDAZOLAM 2 MG/2 ML VIAL IVP ONE (13:30)
[2024-02-10] MEDS: ENOXAPARIN 40 MG/0.4 ML SYRINGE SQ PRN (13:39)
[2024-02-10] MEDS ORDERED: DEXAMETHASONE SOD PHOSPHATE 4 MG/ML 1 ML VIAL ONE (13:42)
[2024-02-10] MEDS ORDERED: NEOSTIGMINE 1 MG/ML 10 ML VIAL ONE (13:42)
[2024-02-10] MEDS ORDERED: fentaNYL (PF) 50 MCG/ML 2 ML AMP ONE (13:42)
[2024-02-10] MEDS ORDERED: PROPOFOL 10 MG/ML 20 ML VIAL IV ONE (13:42)
[2024-02-10] MEDS ORDERED: LIDOCAINE 1% INJ 10MG/ML (20 ML MDV) ONE (13:42)
[2024-02-10] MEDS ORDERED: ROPIVACAINE 5 MG/ML 30 ML VIAL ONE (13:42)
[2024-02-10] MEDS ORDERED: SUCCINYLCHOLINE CHLORIDE 200 MG/10 ML VIAL IV ONE (13:42)
[2024-02-10] MEDS ORDERED: GLYCOPYRROLATE 0.2 MG/ML 2 ML VIAL ONE (13:42)
[2024-02-10] MEDS ORDERED: HYDROmorphone (PF) 1 MG/ML ONE (13:42)
[2024-02-10] MEDS ORDERED: ROCURONIUM 10 MG/ML (5 ML VIAL) IV ONE (13:42)
[2024-02-10] MEDS ORDERED: PHENYLEPHRINE-0.9% NACL SYG 1,000 MCG/10 ML SYRINGE ONE (13:42)
[2024-02-10] MEDS: LIDOCAINE 1%-EPI 1:100,000 20 ML VIAL SQ ONE ×2 (13:47→14:17)
--- NOTE | 2024-02-10 14:20 | P.ANPRN ---
Procedure Note - Anesthesia - Nerve Block Performed Bilateral Erector Spinae Single Time Out Performed: Yes Date of Procedure: 02/10/24 Procedure Start Time: 13:29 Procedure Stop Time: 13:38 Location of Patient: PreOp Indication: Acute Post-Operative Pain, Analgesia, Requested by Surgeon Sedation Type: Sedate with meaningful contact maintained Preparation: Sterile Prep Position: Sitting Catheter: None Needle Types: Pajunk Needle Gauge: 21 Ultrasound used to visualize needle placement: Yes Ultrasound used to observe medication spread: Yes Injectate: 0.5% Ropivacaine (see comment for volume) (Ropiv 20ml+Decadron 4mg--Each side. T7 level nneedle.) Blood Aspirated: No Pain Paresthesia on Injection Noted: No Resistance on Injection: Normal Image Stored and Saved: Yes Events: Uneventful and Well Tolerated
[2024-02-10] MEDS: ONDANSETRON 4 MG/2 ML VIAL IVP PRN (16:03)
[2024-02-10] MEDS ORDERED: NALOXONE 0.4 MG/ML 1 ML VIAL IV PRN (16:11)
--- NOTE | 2024-02-10 16:17 | P.OP ---
Date of Procedure: 02/10/24 Description of Procedure: SURGEON: AURA RODRIGUEZ MD PREOPERATIVE DIAGNOSES: 1. Morbid obesity due to excess calories, BMI 51.6 POSTOPERATIVE DIAGNOSES: 1. Morbid obesity due to excess calories, BMI 51.6 2. Intra-abdominal peritoneal adhesions 3. Incarcerated incisional hernia/umbilicus OPERATION: 1. Robotic assisted daVinci Xi laparoscopic sleeve gastrectomy with 40-Romansh bougie, multiport. 2. Robotic assisted daVinci Xi laparoscopic lysis of adhesions ANESTHESIA: Gen. local anesthetic ESTIMATED BLOOD LOSS: 5 mL SPECIMENS REMOVED: Sleeve gastrectomy COMPLICATIONS: None. FINDINGS: 1. Negative intraoperative esophagogastrojejunoscopy leak test. 2. Small 1 cm hiatal hernia defect. 3. Total of 7 staplers used including 1 - 60 mm green, 6 - 60 mm blue robot loads used to create the gastric sleeve. 4. Sleeve gastrectomy, 30 x 5 cm 5. Moderate intra-abdominal adhesions midline including incarcerated umbilical hernia, 1 cm. 6. Lysis of adhesions to dissect midline to epigastric adhesions 7. Subxiphoid hernia without incarceration 8. Moderate posterior gastric adhesions including transverse colon adherent to posterior stomach INDICATIONS: The patient is a 68-year-old male who comes with lifelong morbid obesity. All surgical options for morbid obesity had been described using the [place] [facility]ariat[facility] surgery collaborative comorbidity resolution including complication risk score. A second-generation bariatric consent form was described in detail including the possibility of protein malnutrition, leaks, gastric stricture, venous thrombosis, gastroesophageal reflux disease, need for further surgery for which she demonstrated understanding. Benefits and risks of the procedure were described at length. Informed consent was obtained. DESCRIPTION: The patient was brought into the operating room theater. Preoperatively she had received Lovenox subcutaneously for DVT prophylaxis. Additionally she had Peridex oral solution as an oral decontaminant. After general induction, the abdomen was prepped and draped in standard sterile fashion. An Ioban draping was placed along the abdomen. A robotic da Nir Xi system was prepped and primed. At 15 cm from the xiphoid, proposed port sites were marked with indelible marker along the anterior axillary line bilaterally, mid axillary line bilaterally with each ports were marked 10 to 15 cm from each other. The robotic stapler port was marked for the right midclavicular line. A 5 mm 0 degrees laparoscopic trocar entry was performed along the left upper quadrant. The abdomen was insufflated to 15 mmHg pressure was tolerated well. Diagnostic laparoscopy demonstrated no injury to bowel, viscera, or mesentery. No evidence of large hiatus hernia was identified. The liver edge was slightly thickened due to mild hepatomegaly despite 2-week protein diet. A 8 mm port was placed along the left upper abdominal wall after exchanging the 5 mm port. A separate 8 mm port was placed along the left lateral abdominal wall. Please note that the ports were placed at least 20 cm away from the target anatomy. Care was taken to check each robotic arms were safely away from collision with the bed or the patient. At the epigastrium, a medium sized Brayden liver retractor was placed under direct visualization with the [employer] placed under the right shoulder of the patient. Next, 12-mm robot stapler port was placed along the right upper quadrant. The camera 8-mm port was maintained along the epigastrium. The patient was repositioned in reverse Trendelenburg position at 21-degrees after lowering the bed. The robot was docked along the left side of the patient. Using a grasper for arm 4, a vessel sealer for arm 3, including grasper for arm 1, the robotic system was docked and primed as described. Instruments were interchanged by the assistant women's tennis coach for stapler loads. The camera was placed at 30- degrees down. I had sat at the console. The pylorus was identified and 6 cm proximally along the greater curvature of the stomach, the short gastrics were mobilized upwards to the angle of His using a vessel sealer. Hemostasis was excellent during this portion of the procedure. Next, the upper pole of the stomach was adherent to the left ev, which was gently dissected free using atraumatic grasper. I went to the head of the bed and placed 40-Romansh blunt bougie into the stomach. The bougie was readjusted by the nurse rn clinical documentation. Robotic stapler black load 60 mm 1 followed by green 60 mm x 1, and blue 60 mm loads x 4 were used to create the sleeve. Initial firing was across the antrum of the stomach towards the angle of His. The staple line was linear without c orkscrewing. The space from the angularis incisura of the sleeve was approximately 4 cm. I then went to the head of the bed to perform the intraoperative esophagogastroduodenoscopy leak test. The bougie was withdrawn. The upper pole of the stomach was bathed using normal saline solution. The scope was withdrawn with careful inspection along the staple line for which no leaks were found along the entire length. Additionally,the sleeve was completely hemostatic without any encroachment along the angularis incisura. Its topology was a soft "J". No stricture was encountered upon placement of the scope. The GI tract was desufflated. The patient tolerated this portion of the procedure well. The scope was completely withdrawn. The robot was undocked. I then rescrubbed into case, whereby the irrigation fluid was aspirated from the abdominal cavity. Tisseel fibrin sealant was placed along the entire staple length. Once dried the Brayden liver retractor was removed. Attention was now brought to removal of the specimen. The distal end of the sleeve gastrectomy specimen was brought out through the 12 mm port at the left upper quadrant. The specimen was gently removed en total. No contamination had occurred during this process. All instruments and pneumoperitoneum including irrigation fluid was removed from the abdominal cavity. The 12 mm port site was closed using 0-Vicryl and Gera Chen and irrigated with diluted hydrogen peroxide. The final incisions were closed using subcuticular interrupted suture of 4-0 Monocryl. Exofin was applied to the skin once the skin had been cleansed. OptiFoam dressing was placed along the stomach extraction site. The sleeve specimen was measured and checked also for leaks which none were found. At the end of the procedure, needle, sponge, and instrument count was verified correct by the surgical instrument maker. The patient was taken to the postanesthesia care unit in stable condition. The patient had tolerated the procedure well. Intraoperative films and findings were reviewed with the patient's family. Plan - Discharge Summary Discharge Rx Participant: No New Discharge Prescriptions: New Simethicone 40 mg/0.6 ml Drops [Mylicon Drops] 40 mg PO PCHS PRN #30 ml PRN Reason: Gas Omeprazole [PriLOSEC] 40 mg PO DAILY #30 cap bisacodyL [Dulcolax] 5 mg PO DAILY PRN #10 tab PRN Reason: Constipation Acetaminophen Tab [Tylenol Tab] 1,000 mg PO Q6HR PRN #30 tablet PRN Reason: Pain Ondansetron Odt [Zofran Odt] 4 mg PO Q8HR PRN #9 tab PRN Reason: Nausea Continue Sertraline [Zoloft] 50 mg PO DAILY Aspirin [Adult Low Dose Aspirin EC] 162 mg PO DAILY Atorvastatin [Lipitor] 40 mg PO DAILY Premier Protein Shake 1 bottle PO TID-W/MEALS mycophenolate mofetiL [Cellcept] 1,000 mg PO BID levETIRAcetam [Keppra] 750 mg PO BID Losartan [Cozaar] 25 mg PO QAM Discontinued Acetaminophen [Acetaminophen 8 hr] 650 mg PO Q8H PRN PRN Reason: Pain Discharge Medication List Aspirin [Adult Low Dose Aspirin EC] 162 mg PO DAILY 05/28/18 [History] Sertraline [Zoloft] 50 mg PO DAILY 05/28/18 [History] levETIRAcetam [Keppra] 750 mg PO BID 10/08/20 [History] Losartan [Cozaar] 25 mg PO QAM 01/10/22 [History] Atorvastatin [Lipitor] 40 mg PO DAILY 12/28/22 [History] Premier Protein Shake 1 bottle PO TID-W/MEALS 12/28/22 [History] mycophenolate mofetiL [Cellcept] 1,000 mg PO BID 10/02/23 [History] Acetaminophen Tab [Tylenol Tab] 1,000 mg PO Q6HR PRN #30 tablet 02/10/24 [Rx] Omeprazole [PriLOSEC] 40 mg PO DAILY #30 cap 02/10/24 [Rx] Ondansetron Odt [Zofran Odt] 4 mg PO Q8HR PRN #9 tab 02/10/24 [Rx] Simethicone 40 mg/0.6 ml Drops [Mylicon Drops] 40 mg PO PCHS PRN #30 ml 02/10/24 [Rx] bisacodyL [Dulcolax] 5 mg PO DAILY PRN #10 tab 02/10/24 [Rx] Follow up Appointment(s)/Referral(s): Bariatric [place], [place] [NON-STAFF] - 02/12/24 3:00 pm (OBTAIN SWALLOW STUDY MORNING OF APPOINTMENT) Patient Instructions/Handouts: Nutrition after Bariatric Surgery (DC), Laparoscopic Sleeve Gastrectomy (DC) Activity/Diet/Wound Care/Special Instructions: NO LONG DRIVES OR AIRPLANE RIDES OVER 30 MINUTES FOR THE NEXT 2 WEEKS, Feb 23, DUE TO HIGH RISK OF PULMONARY EMBOLISM/DVTs Liquid diet only for 2 weeks until Feb 23 May Shower. No soaking in bath tubs 2 weeks until Feb 23 Continue to use incentive spirometry to prevent pneumonias. Please continue to ambulate at home to prevent blood clots in legs. Please notify your surgeon if you develop nausea and vomiting including new onset of abdominal pain. No lifting over 4 pounds in 4 weeks, Mar 11 Drink 64 oz of fluid daily. Start protein shakes on . Notify bariatric center for temp over 101.0, increased pain, drainage from incisions. No straws or carbonated beverages. Liquid diet only. Sugar content should be less than 6 g to avoid dumping syndrome. Take MOM for constipation. CRUSH, OPEN, OR CUT TABLETS LARGER THAN A SIZE OF A TIC TAC Discharge Disposition: HOME SELF-CARE
[2024-02-10] MEDS: diphenhydrAMINE 50 MG/ML 1 ML VIAL IVP SCH (16:42)
--- NOTE | 2024-02-10 17:22 | P.PN ---
Progress Note - Text Progress Note Date: 02/10/24 Patient feels well. She had mild nausea. Patient being transferred from face to to floor. Trial of diet sugar-free being attempted. Otherwise, patient clinically stable. Will reassess for discharge.
[2024-02-10] MEDS: SODIUM CHLORIDE 0.9% 2,000 ML IV ONE (18:23)
[2024-02-10] MEDS: ONDANSETRON 4 MG/2 ML VIAL IVP SCH (19:51)
[2024-02-10] MEDS: ALBUTEROL NEBULIZED 2.5 MG/3 ML INHALATION SCH (21:09)
[2024-02-10] MEDS: SIMETHICONE 80 MG CHEWABLE PO SCH (22:57)
[2024-02-10] MEDS: 0.9% NACL WITH KCL 20 MEQ/L 1,000 ML IV SCH (22:57)
[2024-02-10] MEDS: ACETAMINOPHEN IV (For NPO) 1,000 MG in EMPTY BAG 1 BAG IVPB SCH (22:58)
[2024-02-10] MEDS: PANTOPRAZOLE 40 MG/10 ML VIAL IV SCH (23:05)
[2024-02-10] MEDS: DEXAMETHASONE SOD PHOSPHATE 10 MG/ML 1 ML VIAL IVP ONE (23:06)
[2024-02-10] MEDS: HYDROmorphone 1 MG/ML 1 ML SYRINGE IVP PRN (23:22)
[2024-02-11 02:50] VITALS: RESP 17
[2024-02-11] MEDS: 0.9% NACL WITH KCL 20 MEQ/L 1,000 ML IV SCH (06:19)
[2024-02-11 08:13] VITALS: BP 109/64; PULSE 74; TEMP 98.7
[2024-02-11 09:02] LABS: Basophils # (A) 0 X 10*3/uL (0.00-0.10); Basophils % (A) 0 %; Eosinophils # (A) 0 X 10*3/uL (0.04-0.35); Eosinophils % (A) 0 %; HGB 12.6 g/dL (12.0-15.0); Lymphocytes # (A) 0.44 X 10*3/uL (0.90-5.00); Lymphocytes % (A) 7.4 %; MCH 31.3 pg (27.0-32.0); MCHC 33.2 g/dL (32.0-37.0); MCV 94.5 FL (80.0-97.0); Monocytes # (A) 0.05 X 10*3/uL (0.20-1.00); Monocytes % (A) 0.8 %; NRBC Per 100 WBC 0 X 10*3/uL (0.00-0.01); Neutrophils # (A) 5.41 X 10*3/uL (1.80-7.70); Neutrophils % (A) 91.5 %; Platelet Count 133 X 10*3/uL (140-440); RBC 4.02 X 10*6/uL (4.10-5.20); RDW 12.3 % (11.5-14.5); WBC 5.92 X 10*3/uL (4.50-10.00)
[2024-02-11 09:21] LABS: Blood Urea Nitrogen 9.8 mg/dL (9.0-27.0); Calcium 8.4 mg/dL (8.7-10.3); Carbon Dioxide 18.1 mmol/L (21.6-31.8); Chloride 106 mmol/L (96-109); Magnesium 1.7 mg/dL (1.5-2.4); Phosphorus 2.9 mg/dL (2.4-5.1); Potassium 4.4 mmol/L (3.5-5.5); Sodium 138 mmol/L (135-145)
[2024-02-11] MEDS: SERTRALINE 50 MG TAB PO SCH (10:20)
[2024-02-11] MEDS: ENOXAPARIN 40 MG/0.4 ML SYRINGE SQ SCH (10:21)
[2024-02-11] MEDS: ASPIRIN 81 MG PO SCH (10:21)
[2024-02-11] MEDS: LOSARTAN 25 MG TAB PO SCH (10:21)
[2024-02-11 11:03] VITALS: BMI 51.5
--- NOTE | 2024-02-11 11:19 | P.DS ---
Providers Date of admission: 02/10/24 11:53 Expected date of discharge: 02/11/24 Attending physician: Ayse Murphy Primary care physician: Rashaad Maldonado Hospital Course: Discharge diagnosis 1. Morbid obesity due to excess calories, BMI 51.6 2. Intra-abdominal peritoneal adhesions 3. Incarcerated incisional hernia/umbilicus Hospital course Mrs. Smith is a 68-year-old female with lifelong morbid obesity. She is status post robotic assisted laparoscopic sleeve gastrectomy and lysis of adhesions. Patient's pain is controlled. She is tolerating diet. She has been up and ambulating. She is urinating without difficulty. She is afebrile. She is stable for discharge. Physician Teachers Aide note has been reviewed by physician. Signing provider agrees with the documented findings, assessment, and plan of care. Patient Condition at Discharge: Stable Plan - Discharge Summary Discharge Rx Participant: Yes New Discharge Prescriptions: New Simethicone 40 mg/0.6 ml Drops [Mylicon Drops] 40 mg PO PCHS PRN #30 ml PRN Reason: Gas Omeprazole [PriLOSEC] 40 mg PO DAILY #30 cap bisacodyL [Dulcolax] 5 mg PO DAILY PRN #10 tab PRN Reason: Constipation Acetaminophen Tab [Tylenol Tab] 1,000 mg PO Q6HR PRN #30 tablet PRN Reason: Pain Ondansetron Odt [Zofran Odt] 4 mg PO Q8HR PRN #9 tab PRN Reason: Nausea Continue Sertraline [Zoloft] 50 mg PO DAILY Aspirin [Adult Low Dose Aspirin EC] 162 mg PO DAILY Atorvastatin [Lipitor] 40 mg PO DAILY Premier Protein Shake 1 bottle PO TID-W/MEALS mycophenolate mofetiL [Cellcept] 1,000 mg PO BID levETIRAcetam [Keppra] 750 mg PO BID Losartan [Cozaar] 25 mg PO QAM Discontinued Acetaminophen [Acetaminophen 8 hr] 650 mg PO Q8H PRN PRN Reason: Pain Discharge Medication List Aspirin [Adult Low Dose Aspirin EC] 162 mg PO DAILY 05/28/18 [History] Sertraline [Zoloft] 50 mg PO DAILY 05/28/18 [History] levETIRAcetam [Keppra] 750 mg PO BID 10/08/20 [History] Losartan [Cozaar] 25 mg PO QAM 01/10/22 [History] Atorvastatin [Lipitor] 40 mg PO DAILY 12/28/22 [History] Premier Protein Shake 1 bottle PO TID-W/MEALS 12/28/22 [History] mycophenolate mofetiL [Cellcept] 1,000 mg PO BID 10/02/23 [History] Acetaminophen Tab [Tylenol Tab] 1,000 mg PO Q6HR PRN #30 tablet 02/10/24 [Rx] Omeprazole [PriLOSEC] 40 mg PO DAILY #30 cap 02/10/24 [Rx] Ondansetron Odt [Zofran Odt] 4 mg PO Q8HR PRN #9 tab 02/10/24 [Rx] Simethicone 40 mg/0.6 ml Drops [Mylicon Drops] 40 mg PO PCHS PRN #30 ml 02/10/24 [Rx] bisacodyL [Dulcolax] 5 mg PO DAILY PRN #10 tab 02/10/24 [Rx] [place]ment(s[place]/12/24 3:00 pm (OBTAIN SWALLOW STUDY MORNING OF APPOINTMENT) Patient Instructions/Handouts: Nutrition after Bariatric Surgery (DC), Laparoscopic Sleeve Gastrectomy (DC) Activity/Diet/Wound Care/Special Instructions: NO LONG DRIVES OR AIRPLANE RIDES OVER 30 MINUTES FOR THE NEXT 2 WEEKS, Feb 23, DUE TO HIGH RISK OF PULMONARY EMBOLISM/DVTs Liquid diet only for 2 weeks until Feb 23 May Shower. No soaking in bath tubs 2 weeks until Feb 23 Continue to use incentive spirometry to prevent pneumonias. Please continue to ambulate at home to prevent blood clots in legs. Please notify your surgeon if you develop nausea and vomiting including new onset of abdominal pain. No lifting over 4 pounds in 4 weeks, Mar 11 Drink 64 oz of fluid daily. Start protein shakes on . Notify bariatric center for temp over 101.0, increased pain, drainage from incisions. No straws or carbonated beverages. Liquid diet only. Sugar content should be less than 6 g to avoid dumping syndrome. Take MOM for constipation. CRUSH, OPEN, OR CUT TABLETS LARGER THAN A SIZE OF A TIC TAC Discharge Disposition: HOME SELF-CARE
== END 2024-02-11 14:18 | disposition home or self-care (01) | DRG 620 ==
LOC: 2ORMAIN 11:53 → 4SSUR 17:10
PROVIDERS: ADMIT Surgery Plastic and Reconstructive Surgery; ATTEND Surgery Plastic and Reconstructive Surgery
PROC: 0DJ08ZZ Inspection of Upper Intestinal Tract, Via Natural or Artificial Opening Endoscopic (ICD-10-PCS; principal; 2024-02-10 13:40)
PROC: 8E0W4CZ Robotic Assisted Procedure of Trunk Region, Percutaneous Endoscopic Approach (ICD-10-PCS; principal; 2024-02-10 13:40)
PROC: 0DB64Z3 Excision of Stomach, Percutaneous Endoscopic Approach, Vertical (ICD-10-PCS; principal; 2024-02-10 13:40)
DX: E66.01 Morbid (severe) obesity due to excess calories (principal); K42.0 Umbilical hernia with obstruction, without gangrene; K43.0 Incisional hernia with obstruction, without gangrene; Z68.43 Body mass index [BMI] 50.0-59.9, adult; M17.0 Bilateral primary osteoarthritis of knee; M16.0 Bilateral primary osteoarthritis of hip; I11.9 Hypertensive heart disease without heart failure; G47.33 Obstructive sleep apnea (adult) (pediatric); K75.4 Autoimmune hepatitis; M19.09 Primary osteoarthritis, other specified site; K76.0 Fatty (change of) liver, not elsewhere classified; K21.9 Gastro-esophageal reflux disease without esophagitis; E11.51 Type 2 diabetes mellitus with diabetic peripheral angiopathy without gangrene; I25.10 Atherosclerotic heart disease of native coronary artery without angina pectoris; E78.2 Mixed hyperlipidemia; G40.909 Epilepsy, unspecified, not intractable, without status epilepticus; J44.9 Chronic obstructive pulmonary disease, unspecified; Z86.73 Personal history of transient ischemic attack (TIA), and cerebral infarction without residual deficits; Z95.5 Presence of coronary angioplasty implant and graft; Z87.891 Personal history of nicotine dependence; Z79.899 Other long term (current) drug therapy; Z79.82 Long term (current) use of aspirin; Z79.624 Long term (current) use of inhibitors of nucleotide synthesis; Z88.1 Allergy status to other antibiotic agents; Z88.8 Allergy status to other drugs, medicaments and biological substances
CPT/HCPCS: 64999; 80051; 82310; 82565; 83735; 84100; 84520; 85025; 88307

== ENCOUNTER → 2024-02-12 | Outpatient (CLI) | payer MEDICARE ==
[~2024-02-12] MED LIST changes: -LIDOCAINE 1% (10MG/ML) FOR IV START INTRADERMA PRN; +SODIUM CHLORIDE 0.9% 500 ML 500 ML in EMPTY BAG 1 BAG IV PRN
[2024-02-12] MEDS: SODIUM CHLORIDE 0.9% 1,000 ML IV SCH (11:00)
[2024-02-12 11:18] VITALS: BP 148/76; PULSE 72; RESP 16; TEMP 97.3
[2024-02-12] MEDS: ONDANSETRON 4 MG/2 ML VIAL IVP NR (11:21)
[2024-02-12] MEDS: DEXAMETHASONE SOD PHOSPHATE 10 MG/ML 1 ML VIAL IVP NR (11:25)
== END ==
LOC: PROCWHC3 11:12
PROVIDERS: ATTEND Surgery Plastic and Reconstructive Surgery
DX: E86.0 Dehydration
CPT/HCPCS: 36415; 83735; 96360; 96361; 96374; 96375

== ENCOUNTER → 2024-02-12 | Outpatient (CLI) | payer MEDICARE ==
[2024-02-12 11:16] VITALS: BP 148/76; PULSE 72; RESP 16; TEMP 98.3; BMI 50.5
--- NOTE | 2024-02-14 18:14 | P.BASOAP ---
Subjective Progress Note Date: 02/14/24 Patient had upper GI series independently reviewed demonstrating no leak but mild obstruction. Patient reports moderate nausea. She has poor oral intake. IV fluid hydration advised with Decadron. Will need repeat fluid boluses in 48 hours. Recommend magnesium level for which hypomagnesia will contribute to chronic nausea. Magnesium level less than 2.0 would warrant infusion. Otherwise, no infection. Pain controlled. Close outpatient follow-up. Objective - Vital Signs Vital signs: Vital Signs Temp 98.3 F 02/12/24 10:49 Pulse 72 02/12/24 10:49 Resp 16 02/12/24 10:49 BP 148/76 02/12/24 10:49 Pulse Ox FiO2 Assessment/Plan Plan: Date: 02/12/24 Initial Weight: Initial BMI: Current Weight: 109.769 kg Current BMI: 50.5 Type of Surgery: Total Volume in Band: Previous Volume: Volume Removed: Volume Added: Band Size:
== END | disposition home or self-care (01) ==
LOC: BARWHC3 09:14
PROVIDERS: ATTEND Surgery Plastic and Reconstructive Surgery
DX: Z01.810 Encounter for preprocedural cardiovascular examination (principal); E66.01 Morbid (severe) obesity due to excess calories; I25.10 Atherosclerotic heart disease of native coronary artery without angina pectoris; I73.9 Peripheral vascular disease, unspecified; E78.2 Mixed hyperlipidemia; I65.23 Occlusion and stenosis of bilateral carotid arteries; Z88.1 Allergy status to other antibiotic agents; Z88.8 Allergy status to other drugs, medicaments and biological substances; Z68.43 Body mass index [BMI] 50.0-59.9, adult; Z87.891 Personal history of nicotine dependence
CPT/HCPCS: 99211

== ENCOUNTER → 2024-02-12 | Outpatient (CLI) | payer MEDICARE ==
--- NOTE | 2024-02-12 12:14 | FL ---
EXAMINATION TYPE: FL barium swallow DATE OF EXAM: 02/12/2024 LIMITED UGI-ESOPHAGRAM: CLINICAL HISTORY: Postop. TECHNIQUE: Limited esophagram is performed utilizing 10 oz of subcutaneous 370. A total of not provi ded seconds of fluoroscopic time was utilized during procedure. FINDINGS: The patient swallowed contrast without difficulty or delay. Esophageal peristalsis and mo tility are within normal limits. There is good flow of contrast along the diaphragmatic hiatus into t he stomach, there is no evidence of contrast extravasation to suggest leak. Incidental note made of p ostsurgical change involving the vertebral column. There are tertiary contractions of the esophagus. Surgical clips in the upper abdomen. Elevated right hemidiaphragm. IMPRESSION: No evidence of leak or significant obstruction. [facility], , 02/12/2024 12:11 PM
== END | disposition home or self-care (01) ==
LOC: RADFLMAIN 09:38
PROVIDERS: ATTEND Surgery Plastic and Reconstructive Surgery
DX: R13.10 Dysphagia, unspecified (principal)
CPT/HCPCS: 74220

== ENCOUNTER → 2024-02-14 | Outpatient (CLI) | payer MEDICARE ==
[2024-02-14 10:28] VITALS: BP 152/73; PULSE 73; RESP 20; TEMP 98.3
[2024-02-14] MEDS: SODIUM CHLORIDE 0.9% 1,000 ML IV ONE (10:48)
[2024-02-14] MEDS: MAGNESIUM SULFATE-D5W PMX 1 GM in DEXTROSE/WATER 1 100ML.BAG IVPB NR (10:48)
[2024-02-14] MEDS: DEXAMETHASONE SOD PHOSPHATE 10 MG/ML 1 ML VIAL IVP STA (11:58)
== END ==
LOC: PROCWHC3 10:14
PROVIDERS: ATTEND Surgery Plastic and Reconstructive Surgery
DX: E86.0 Dehydration (principal); R11.2 Nausea with vomiting, unspecified; Z88.1 Allergy status to other antibiotic agents; Z88.8 Allergy status to other drugs, medicaments and biological substances
CPT/HCPCS: 96360; 96365; 96366; 96375

== ENCOUNTER → 2024-02-14 | Outpatient (CLI) | payer MEDICARE ==
[2024-02-14 10:35] VITALS: BP 152/73; PULSE 73; RESP 14; TEMP 98.3; BMI 49.5
--- NOTE | 2024-02-14 18:12 | P.BASOAP ---
Subjective Progress Note Date: 02/14/24 Patient reports troubles with swallowing however improving. She does have poor oral intake. Her is bedside also confirms poor oral intake however improving. Recommend IV fluid hydration. She does her chronic nausea. Prior magnesium 1.8. Magnesium 1 g transfusion including IV fluid bolus at least 1 L advised. Close follow-up as outpatient for next Saturday. All questions addressed. Objective - Vital Signs Vital signs: Vital Signs Temp 98.3 F 02/14/24 10:24 Pulse 73 02/14/24 10:24 Resp 14 02/14/24 10:24 BP 152/73 02/14/24 10:24 Pulse Ox FiO2 Intake & Output 02/13/24 02/14/24 02/14/24 18:59 06:59 18:59 Weight 107.501 kg Assessment/Plan Plan: Date: 02/14/24 Initial Weight: Initial BMI: Current Weight: 107.501 kg Current BMI: 49.5 Type of Surgery: Total Volume in Band: Previous Volume: Volume Removed: Volume Added: Band Size:
== END ==
LOC: BARWHC3 09:52
PROVIDERS: ATTEND Surgery Plastic and Reconstructive Surgery
DX: E66.01 Morbid (severe) obesity due to excess calories (principal); Z88.1 Allergy status to other antibiotic agents; Z88.8 Allergy status to other drugs, medicaments and biological substances; Z68.42 Body mass index [BMI] 45.0-49.9, adult; Z87.891 Personal history of nicotine dependence
CPT/HCPCS: 99211

== ENCOUNTER → 2024-02-19 | Outpatient (CLI) | payer MEDICARE ==
[2024-02-19 14:16] VITALS: BP 121/79; PULSE 87; RESP 16; TEMP 98.4; BMI 47.8
--- NOTE | 2024-02-19 14:39 | P.BASOAP ---
Subjective Progress Note Date: 02/19/24 Discharge home in 24 hrs. She has occassional issues with swallowing big pills. Liquids better. 2 protein shakes daily. She feels happy. Pain along the tummy is tolerable. We kept her due to pain, oxygen, and couldn't pee. Binder is helpful. Tylenol helped with pain. Education before hand was helpful. She is happy with care. She could not get around well. She is going to vacation. High risk of 2 weeks. Sergio Kasper. Objective - Vital Signs Vital signs: Vital Signs Temp 98.4 F 02/19/24 14:10 Pulse 87 02/19/24 14:10 Resp 16 02/19/24 14:10 BP 121/79 02/19/24 14:10 Pulse Ox FiO2 Intake & Output 02/18/24 02/19/24 02/19/24 18:59 06:59 18:59 Weight 103.873 kg Assessment/Plan Plan: Date: 02/19/24 Initial Weight: Initial BMI: Current Weight: 103.873 kg Current BMI: 47.8 Type of Surgery: Total Volume in Band: Previous Volume: Volume Removed: Volume Added: Band Size:
== END ==
LOC: BARWHC3 13:18
PROVIDERS: ATTEND Surgery Plastic and Reconstructive Surgery
DX: E66.01 Morbid (severe) obesity due to excess calories (principal); Z71.3 Dietary counseling and surveillance; Z88.1 Allergy status to other antibiotic agents; Z88.8 Allergy status to other drugs, medicaments and biological substances; Z68.42 Body mass index [BMI] 45.0-49.9, adult; Z87.891 Personal history of nicotine dependence
CPT/HCPCS: 97803; G0463; 99211

== ENCOUNTER → 2024-03-04 | Outpatient (CLI) | payer MEDICARE ==
[2024-03-04 14:17] VITALS: BP 120/80; PULSE 91; RESP 16; TEMP 98.2; BMI 46.1
== END ==
LOC: BARWHC3 13:31
PROVIDERS: ATTEND Surgery Plastic and Reconstructive Surgery
DX: E66.01 Morbid (severe) obesity due to excess calories (principal); Z71.3 Dietary counseling and surveillance; Z87.891 Personal history of nicotine dependence; Z88.1 Allergy status to other antibiotic agents; Z88.8 Allergy status to other drugs, medicaments and biological substances; Z68.42 Body mass index [BMI] 45.0-49.9, adult
CPT/HCPCS: 97803; G0463; 99211